=== PATIENT | female | born 1935 | race Caucasian/White ===

== ENCOUNTER 2022-02-25 07:11 | Inpatient (IN) ==
--- NOTE | 2022-02-25 07:23 | Emergency Department Note ---
History of Present Illness General Chief complaint: Lethargic Stated complaint: LETHARGIC Time Seen by Provider: 02/25/22 07:16 History of Present Illness This is an 86-year-old female that presents to the emergency department via ambulance with prehospital complaints of "lethargic". She presents for assessment of altered mental status. Per report the patient around 0250am today had a temp of 99.9 and tachycardia 133bpm. The patient is currently being treated for UTI/yeast infection per accompanying documentation. Indwelling Schwab catheter noted. Around 6:15 AM per documentation [facility] reports lef t-sided facial droop and left sided weakness. EMS note that no weakness has been appreciated on arrival to the facility or en route. Per review of the chart patient is DNR. The patient is notably answering questions at the present time. It appears that she has been admitted for functional decline and went from [facility] to [facility]. Patient arrives to us today from [facility]. He patient on arrival and per EMS did not have any facial droop or extremity weakness. The patient will only follow basic questions such as opening her eyes but will not move any of the extremities. The patient appears to be overall dry and is tachycardic. She does have a borderline elevated temperature orally. Per review of the documentation and admission record from her [facility], the patient is a level 5 DNR. She does not have any documented allergies. The patient appears to have a history of functional decline, gait dysfunction, diabetes type 2, generalized weakness, recurrent UTI, chronic low back pain, chronic left rotator cuff impingement syndrome and failure to thrive. 02/17/2022 urine culture revealed pansensitive E. coli. Heaven albicans also noted. Home Medications Medication Instructions Recorded Confirmed Type acetaminophen 325 mg tablet 325 mg PO QID PRN 02/25/22 02/25/22 History amoxicillin 250 mg capsule 250 mg PO TID 02/25/22 02/25/22 History aspirin 81 mg capsule 81 mg PO QAM 02/25/22 02/25/22 History bisacodyl 10 mg rectal suppository 0 mg ME DAILY PRN 02/25/22 02/25/22 History (Dulcolax (bisacodyl)) diclofenac sodium 1 % topical gel 4 g TOPICAL BID PRN 02/25/22 02/25/22 History docusate sodium 100 mg tablet 100 mg PO BID PRN 02/25/22 02/25/22 History duloxetine 60 mg capsule,delayed 60 mg PO QAM 02/25/22 02/25/22 History release empagliflozin 25 mg tablet 50 mg PO DAILY 02/25/22 02/25/22 History (Jardiance) ferrous gluconate 325 mg (37 mg 324 mg PO DAILY 02/25/22 02/25/22 History iron) tablet fluconazole 100 mg tablet 100 mg PO QAM 02/25/22 02/25/22 History glipizide 5 mg tablet 5 mg PO BID 02/25/22 02/25/22 History insulin aspart U-100 100 unit/mL 0 sliding scale dose SUBCUT QID 02/25/22 02/25/22 History subcutaneous solution (Novolog U-100 Insulin aspart) lactulose 10 gram/15 mL oral 30 g PO DAILY PRN 02/25/22 02/25/22 History solution (Enulose) lanolin alcohols-mineral 1 applic TOPICAL BID 02/25/22 02/25/22 History oil-w.petrolatum-ceresin topical cream (Eucerin) levothyroxine 50 mcg tablet 50 mcg PO DAILY 02/25/22 02/25/22 History magnesium hydroxide 400 mg/5 mL 30 ml PO DAILY PRN 02/25/22 02/25/22 History oral suspension (Milk of Magnesia) menthol 0.44 %-zinc oxide 20.6 % 1 applic TOPICAL QID 02/25/22 02/25/22 History topical ointment metformin 1,000 mg tablet 1,000 mg PO BID 02/25/22 02/25/22 History mirabegron 25 mg tablet,extended 25 mg PO DAILY 02/25/22 02/25/22 History release 24 hr (Myrbetriq) multivitamin 1 tab PO QAM 02/25/22 02/25/22 History naproxen 500 mg tablet 500 mg PO Q12 PRN 02/25/22 02/25/22 History nystatin 100,000 unit/gram topical 1 applic TOPICAL TID 02/25/22 02/25/22 History powder (Nyamyc) nystatin-triamcinolone 100,000 1 applic TOPICAL TID 02/25/22 02/25/22 History unit/g-0.1 % topical cream oxybutynin chloride 10 mg 10 mg PO DAILY 02/25/22 02/25/22 History tablet,extended release 24 hr pantoprazole 40 mg tablet,delayed 40 mg PO DAILY 02/25/22 02/25/22 History release sodium phosphates 19 gram-7 0 ml ME DAILY PRN 02/25/22 02/25/22 History gram/118 mL enema (Fleet Enema) Allergies Allergy/AdvReac Type Severity Reaction Status Date / Time No Known Allergies Allergy Unverified 02/25/22 10:58 Past Med/Surg History Medical History DM2 (diabetes mellitus, type 2) GERD (gastroesophageal reflux disease) Hypothyroid Overactive bladder Social History Smoking Status: Never smoker Hx Alcohol Use: No Hx Substance Use: No Feels Safe at Home: Yes Review of Systems Unobtainable secondary to altered mental status. Physical Exam Vital Signs Vital Signs - 24 hr 02/25/22 07:16 02/25/22 07:30 02/25/22 07:45 Temperature 37.6 C H Temperature Source Oral Pulse Rate 120 H 123 H 127 H Pulse Rate from SpO2 Sensor 124 H Respiratory Rate 24 26 H 20 Blood Pressure 181/102 H 178/98 H 159/129 H Blood Pressure Mean 128 124 139 Blood Pressure Position Lying Pulse Oximetry 95 97 95 Oxygen Delivery Method Room Air Room Air Room Air Sepsis Recent Fever Within 48 Hours No Sepsis New/Unexplained Change in Mental Status N/A Sepsis Action Taken by Nursing No Action Required 02/25/22 08:00 02/25/22 08:15 02/25/22 08:38 Temperature Temperature Source Pulse Rate 122 H 120 H 117 H Pulse Rate from SpO2 Sensor 117 H Respiratory Rate 25 H 24 23 Blood Pressure 167/100 H 166/89 H 148/88 H Blood Pressure Mean 122 114 108 Blood Pressure Position Pulse Oximetry 96 Oxygen Delivery Method Room Air Sepsis Recent Fever Within 48 Hours Sepsis New/Unexplained Change in Mental Status Sepsis Action Taken by Nursing 02/25/22 08:45 02/25/22 09:00 02/25/22 09:15 Temperature Temperature Source Pulse Rate 115 H 115 H 113 H Pulse Rate from SpO2 Sensor 115 H 114 H 113 H Respiratory Rate 20 22 24 Blood Pressure 136/68 131/71 123/71 Blood Pressure Mean 90 91 88 Blood Pressure Position Pulse Oximetry 96 96 96 Oxygen Delivery Method Room Air Room Air Room Air Sepsis Recent Fever Within 48 Hours Sepsis New/Unexplained Change in Mental Status Sepsis Action Taken by Nursing 02/25/22 09:30 02/25/22 09:45 02/25/22 10:00 Temperature Temperature Source Pulse Rate 112 H 110 H 112 H Pulse Rate from SpO2 Sensor 112 H 111 H 112 H Respiratory Rate 20 22 28 H Blood Pressure 137/84 111/76 111/81 Blood Pressure Mean 101 87 91 Blood Pressure Position Pulse Oximetry 97 96 95 Oxygen Delivery Method Room Air Room Air Room Air Sepsis Recent Fever Within 48 Hours Sepsis New/Unexplained Change in Mental Status Sepsis Action Taken by Nursing VITAL SIGNS - Vital signs and nursing notes were reviewed. Mildly tachycardic, borderline febrile. Hypertensive. GENERAL -86-year-old female appearing her stated age who laying on the examination bed with her eyes closed. Patient does not communicate. She will open her eyes when asked. SKIN - Without rashes. No meningeal or petechial rash. HEAD - NC/AT. EYES - PERRL with EOMI bilaterally. Sclera anicteric. Palpebral conjunctiva pink and moist with no injection noted. EARS - No deformities of external structures noted on gross examination bi laterally. No pain elicited with palpation of the tragus bilaterally. External auditory canals without discharge or otorrhea. Tympanic membranes pearly mistry without retraction or bulging. No fluid or purulent material visualized behind the TM. Handle of malleus, umbo, cone of light, pars tensa/flaccid all easily visualized. NOSE - Midline and without cyanosis. No epistaxis or purulent drainage noted. Septum midline without deviation or septal hematoma noted. MOUTH/OROPHARYNX - Without perioral cyanosis. Buccal mucosa pink and moist and without leukoplakia. Tongue midline with equal elevation of palate bilaterally. No tonsillar hypertrophy, erythema, or exudates noted. NECK - No nuchal rigidity. LUNGS - Chest wall symmetric without accessory muscle use, intercostals retractions, or central cyanosis. Normal vesicular breath sounds CTA B/L. No wheezes, rales, or rhonchi appreciated. CARDIAC -tachycardic at a regular rhythm. ABDOMEN - Abdominal contour normal without pulsations or visible masses. No appreciable tenderness to palpation. EXTREMITIES - No clubbing or peripheral cyanosis. Patient will not move the extremities purposefully when asked. No appreciable contractures or deficits when examining the extremities. PSYCH -patient is not answering any questions. She will only open her eyes when directed. No other purposeful movements or words. Course Administered Medications Aspirin (Aspirin 81 Mg Ectab) 81 mg PO QAM [facility] Stop: 03/28/22 08:59 Last Admin: 02/26/22 10:52 Dose: Not Given Documented by: [id number] Duloxetine HCl (Duloxetine Hcl 60 Mg Cap) 60 mg PO QAM LATA Stop: 03/28/22 08:59 Last Admin: 02/26/22 10:52 Dose: Not Given Documented by: [id number] Enoxaparin Sodium (Enoxaparin Inj 60 Mg/0.6 Ml Syr) 60 mg SQ Q12H LATA Stop: 03/27/22 18:59 Last Admin: 02/26/22 08:41 Dose: 60 mg Documented by: [id number] Admin: 02/25/22 21:13 Dose: 60 mg Documented by: [id number] Ferrous Gluconate (Ferrous Gluconate 324 Mg Tab) 324 mg PO DAILY LATA Stop: 03/28/22 08:59 Last Admin: 02/26/22 10:53 Dose: Not Given Documented by: [id number] Fluconazole (Diflucan) 100 mg in 50 mls @ 100 mls/hr IV Q24H LATA; Protocol Stop: 03/07/22 19:59 Last Infusion: 02/25/22 21:52 Dose: 0 mls/hr Documented by: [id number] Admin: 02/25/22 21:14 Dose: 100 mls/hr Documented by: [id number] Cefepime HCl 2,000 mg/ Syringe 20 mls @ 5 mls/min IV DAILY LATA; Protocol Stop: 03/07/22 08:59 Last Admin: 02/26/22 08:40 Dose: 5 mls/min Documented by: [id number] Lactated Ringer's (Lr) 1,000 mls @ 125 mls/hr IV .Q8H LATA Stop: 03/27/22 16:53 Last Admin: 02/26/22 14:20 Dose: 125 mls/hr Documented by: [id number] Infusion: 02/26/22 14:16 Dose: 0 mls/hr Documented by: [id number] Admin: 02/26/22 06:16 Dose: 125 mls/hr Documented by: [id number] Infusion: 02/26/22 01:46 Dose: 125 mls/hr Documented by: [id number] Admin: 02/25/22 17:46 Dose: 125 mls/hr Documented by: [id number] Insulin Aspart (Insulin Aspart Per Unit) 0 units SC ACHS LATA Stop: 03/27/22 11:29 Last Admin: 02/26/22 17:03 Dose: Not Given Documented by: [id number] Admin: 02/26/22 12:29 Dose: Not Given Documented by: [id number] Admin: 02/26/22 08:48 Dose: 2 units Documented by: [id number] Cosigned by: [id number] Admin: 02/25/22 21:21 Dose: 2 units Documented by: [id number] Cosigned by: [id number] Admin: 02/25/22 17:47 Dose: 4 units Documented by: [id number] Cosigned by: [id number] Admin: 02/25/22 14:48 Dose: Not Given Documented by: [id number] Cosigned by: [id number] Insulin Glargine (Insulin Glargine Solostar 100 Units/Ml 3 Ml Pen) 10 units SC BID [facility] Stop: 03/27/22 20:59 Last Admin: 02/26/22 08:43 Dose: 10 units Documented by: [id number] Cosigned by: [id number] Admin: 02/25/22 21:16 Dose: 10 units Documented by: [id number] Cosigned by: [id number] Levothyroxine Sodium (Levothyroxine Sodium 50 Mcg Tablet) 50 mcg PO DAILYBB [facility] Stop: 03/28/22 06:29 Last Admin: 02/26/22 06:17 Dose: Not Given Documented by: [id number] Mirabegron (Mirabegron Er 25 Mg Tab) 25 mg PO DAILY LATA Stop: 03/28/22 08:59 Last Admin: 02/26/22 10:53 Dose: Not Given Documented by: [id number] Nystatin (Nystatin Powder 15gm Btl) 1 appln EXT TID LATA Stop: 03/27/22 13:59 Last Admin: 02/26/22 15:13 Dose: 1 appln Documented by: [id number] Admin: 02/26/22 08:43 Dose: 1 appln Documented by: [id number] Admin: 02/25/22 22:08 Dose: 1 appln Documented by: [id number] Admin: 02/25/22 17:08 Dose: Not Given Documented by: [id number] Oxybutynin Chloride (Oxybutynin Chloride Xl 5 Mg Tabcr) 10 mg PO DAILY LATA Stop: 03/28/22 08:59 Last Admin: 02/26/22 10:53 Dose: Not Given Documented by: [id number] Pantoprazole Sodium (Pantoprazole 40 Mg Tab) 40 mg PO DAILY LATA Stop: 03/28/22 08:59 Last Admin: 02/26/22 10:53 Dose: Not Given Documented by: [id number] Discontinued Medications Acetaminophen (Ofirmev) 1,000 mg in 100 mls @ 400 mls/hr IV NOW STA Stop: 02/25/22 07:45 Last Infusion: 02/25/22 08:30 Dose: 0 mls/hr Documented by: [id number] Admin: 02/25/22 08:15 Dose: 400 mls/hr Documented by: [id number] Sodium Chloride (Nss 1000ml) 500 mls @ 500 mls/hr IV .Q1H ONE Stop: 02/25/22 08:30 Last Infusion: 02/25/22 09:20 Dose: 0 mls/hr Documented by: [id number] Admin: 02/25/22 08:15 Dose: 500 mls/hr Documented by: [id number] Cefepime HCl (Maxipime) 2,000 mg in 20 mls @ 5 mls/min IV NOW STA; Protocol Stop: 02/25/22 07:34 Last Admin: 02/25/22 08:12 Dose: 5 mls/min Documented by: [id number] Vancomycin HCl 2,000 mg/ (Sodium Chloride) 540 mls @ 200 mls/hr IV NOW ONE Stop: 02/25/22 10:12 Last Infusion: 02/25/22 11:37 Dose: 0 mls/hr Documented by: [id number] Admin: 02/25/22 08:19 Dose: 200 mls/hr Documented by: [id number] Sodium Chloride (Nss 1000ml) 500 mls @ 999 mls/hr IV .Q31M ONE Stop: 02/25/22 10:58 Last Infusion: 02/25/22 12:09 Dose: 0 mls/hr Documented by: [id number] Admin: 02/25/22 11:33 Dose: 999 mls/hr Documented by: [id number] Magnesium Sulfate/Dextrose (Magnesium Sulfate / D5w) 1 gm in 100 mls @ 50 mls/hr IV Q2H LATA Stop: 02/25/22 16:37 Last Infusion: 02/25/22 17:11 Dose: 0 mls/hr Documented by: [id number] Admin: 02/25/22 15:10 Dose: 50 mls/hr Documented by: [id number] Infusion: 02/25/22 15:10 Dose: 50 mls/hr Documented by: [id number] Admin: 02/25/22 14:02 Dose: 50 mls/hr Documented by: [id number] Infusion: 02/25/22 13:33 Dose: 50 mls/hr Documented by: [id number] Admin: 02/25/22 11:33 Dose: 50 mls/hr Documented by: [id number] Vancomycin HCl 1,250 mg/ (Sodium Chloride) 275 mls @ 200 mls/hr IV Q24H LATA Stop: 03/08/22 01:59 Last Infusion: 02/26/22 04:07 Dose: 0 mls/hr Documented by: [id number] Admin: 02/26/22 02:15 Dose: 200 mls/hr Documented by: [id number] Medical Decision Making Laboratory Data Result diagrams: 02/26/22 05:24 02/26/22 05:24 Lab Results 02/25/22 02/25/22 02/25/22 Range/Units 07:51 07:56 08:13 WBC RBC Hgb Hct MCV MCH MCHC RDW Std Deviation RDW Coeff of Susanna Plt Count MPV Immature Gran % (Auto) Neut % (Auto) Lymph % (Auto) Maries % (Auto) Eos % (Auto) Baso % (Auto) Neut # (Auto) Lymph # (Auto) Maries # (Auto) Eos # (Auto) Baso # (Auto) Immature Gran # (Auto) Absolute Nucleated RBC Nucleated RBC % (auto) Neutrophils % (Manual) Band Neutrophils % Lymphocytes % (Manual) Prolymphocyte % Reactive Lymphs % (Man) Monocytes % (Manual) Eosinophils % (Manual) Basophils % (Manual) Metamyelocytes % (Man) Myelocytes % (Man) Promyelocytes % (Man) Blast Cells % (Manual) Plasma Cell % (Manual) Other Cells % Nucleated RBC % Neutrophils # (Manual) Band Neutrophils # Total Absolute Neuts Lymphocytes # (Manual) Prolymphocyte # Reactive Lymphs # Total Abs Lymphocytes Monocytes # (Manual) Eosinophils # (Manual) Basophils # (Manual) Metamyelocytes # (Man) Myelocytes # (Manual) Promyelocytes # (Man) Blast Cells # (Man) Plasma Cell # (Manual) Other Cells # Nucleated RBCs # (Man) Hypersegmented Neuts Hyposegmented Neuts Hypogranular Neuts Large Granular Lymphs # Lrg Granular Lymphs Hairy Cells Smudge Cells Toxic Granulation Toxic Vacuolation Dohle Bodies Tova Rods Platelet Estimate Hypogranular Platelets Clumped Platelets Giant Platelets Platelet Satelliting RBC Morphology Polychromasia Hypochromasia Poikilocytosis Basophilic Stippling Anisocytosis Microcytosis Macrocytosis Spherocytes Pappenheimer Bodies Sickle Cells Target Cells Tear Drop Cells Ovalocytes Stomatocytes Warren-Standish Bodies Echinocytes Acanthocytes (Spur) Rouleaux RBC Agglutinates Schistocytes RBC Morph Comment Sezary Cell PT (9.0-12.0) Seconds INR (0.9-1.1) APTT (21.0-31.0) Seconds PTT Ratio VBG pH (7.36-7.41) VBG pCO2 (38-50) mmHg VBG pO2 mmHg VBG HCO3 mmol/L VBG O2 Saturation % VBG Base Excess mEq/L Barometric Pressure mm/Hg Sodium Cancelled Potassium Cancelled Chloride Cancelled Carbon Dioxide Cancelled Anion Gap Cancelled BUN Cancelled Creatinine Cancelled Est Cr Clr Drug Dosing Cancelled Est GFR ( Amer) Cancelled Est GFR (Non-Af Amer) Cancelled BUN/Creatinine Ratio Cancelled Glucose Cancelled Lactate Calcium Cancelled Magnesium Cancelled Total Bilirubin Cancelled AST Cancelled ALT Cancelled Alkaline Phosphatase Cancelled Troponin I High Sens Cancelled Total Protein Cancelled Albumin Cancelled Globulin Cancelled Albumin/Globulin Ratio Cancelled Procalcitonin (0-0.5) ng/ml TSH Free T4 (0.61-1.60) ng/dl Urine Color [place] Urine Appearance Turbid A (Clear) Urine pH 5.0 (4.5-7.5) Ur Specific Murchison 1.033 H (1.000-1.030) Urine Protein 2+ H (Negative) Urine Glucose (UA) 3+ H (Negative) Urine Ketones 4+ H (Negative) Urine Blood 3+ H (Negative) Urine Nitrite Negative (Negative) Urine Bilirubin Negative (Negative) Urine Urobilinogen Negative (Negative) Ur Leukocyte Esterase 2+ H (Negative) Urine WBC (Auto) >30 H (0-5) /hpf Urine RBC (Auto) 10-30 H (0-4) /hpf U Hyaline Cast (Auto) 1-5 (0-5) /lpf U Epithel Cells (Auto) >30 H (0-5) /lpf Urine Bacteria (Auto) 1+ H (Negative) Urine Yeast Not Reportable Adenovirus (PCR) Not Detected (NotDetected) B. pertussis DNA (PCR) Not Detected (NotDetected) B.parapertussis DNA PCR Not Detected (NotDetected) C. pneumoniae DNA (PCR) Not Detected (NotDetected) Coronavirus OC43 (PCR) Not Detected (NotDetected) Coronavirus HKU1 (PCR) Not Detected (NotDetected) Coronavirus 229E (PCR) Not Detected (NotDetected) SARS-CoV-2 (PCR) Not Detected (NotDetected) Coronavirus NL63 (PCR) Not Detected (NotDetected) Human Metapneumovir PCR Not Detected (NotDetected) Influenza Type A (PCR) Not Detected (NotDetected) Influenza Type B (PCR) Not Detected (NotDetected) M. pneumoniae (PCR) Not Detected (NotDetected) Parainfluenza 1 (PCR) Not Detected (NotDetected) Parainfluenza 2 (PCR) Not Detected (NotDetected) Parainfluenza 3 (PCR) Not Detected (NotDetected) Parainfluenza 4 (PCR) Not Detected (NotDetected) RSV (PCR) Not Detected (NotDetected) Entero/Rhino (PCR) Not Detected (NotDetected) 02/25/22 02/25/22 02/25/22 Range/Units 08:13 08:13 08:13 WBC Cancelled RBC Cancelled Hgb Cancelled Hct Cancelled MCV Cancelled MCH Cancelled MCHC Cancelled RDW Std Deviation Cancelled RDW Coeff of Susanna Cancelled Plt Count Cancelled MPV Cancelled Immature Gran % (Auto) Cancelled Neut % (Auto) Cancelled Lymph % (Auto) Cancelled Maries % (Auto) Cancelled Eos % (Auto) Cancelled Baso % (Auto) Cancelled Neut # (Auto) Cancelled Lymph # (Auto) Cancelled Maries # (Auto) Cancelled Eos # (Auto) Cancelled Baso # (Auto) Cancelled Immature Gran # (Auto) Cancelled Absolute Nucleated RBC Cancelled Nucleated RBC % (auto) Cancelled Neutrophils % (Manual) Cancelled Band Neutrophils % Cancelled Lymphocytes % (Manual) Cancelled Prolymphocyte % Cancelled Reactive Lymphs % (Man) Cancelled Monocytes % (Manual) Cancelled Eosinophils % (Manual) Cancelled Basophils % (Manual) Cancelled Metamyelocytes % (Man) Cancelled Myelocytes % (Man) Cancelled Promyelocytes % (Man) Cancelled Blast Cells % (Manual) Cancelled Plasma Cell % (Manual) Cancelled Other Cells % Cancelled Nucleated RBC % Cancelled Neutrophils # (Manual) Cancelled Band Neutrophils # Cancelled Total Absolute Neuts Cancelled Lymphocytes # (Manual) Cancelled Prolymphocyte # Cancelled Reactive Lymphs # Cancelled Total Abs Lymphocytes Cancelled Monocytes # (Manual) Cancelled Eosinophils # (Manual) Cancelled Basophils # (Manual) Cancelled Metamyelocytes # (Man) Cancelled Myelocytes # (Manual) Cancelled Promyelocytes # (Man) Cancelled Blast Cells # (Man) Cancelled Plasma Cell # (Manual) Cancelled Other Cells # Cancelled Nucleated RBCs # (Man) Cancelled Hypersegmented Neuts Cancelled Hyposegmented Neuts Cancelled Hypogranular Neuts Cancelled Large Granular Lymphs Cancelled # Lrg Granular Lymphs Cancelled Hairy Cells Cancelled Smudge Cells Cancelled Toxic Granulation Cancelled Toxic Vacuolation Cancelled Dohle Bodies Cancelled Tova Rods Cancelled Platelet Estimate Cancelled Hypogranular Platelets Cancelled Clumped Platelets Cancelled Giant Platelets Cancelled Platelet Satelliting Cancelled RBC Morphology Cancelled Polychromasia Cancelled Hypochromasia Cancelled Poikilocytosis Cancelled Basophilic Stippling Cancelled Anisocytosis Cancelled Microcytosis Cancelled Macrocytosis Cancelled Spherocytes Cancelled Pappenheimer Bodies Cancelled Sickle Cells Cancelled Target Cells Cancelled Tear Drop Cells Cancelled Ovalocytes Cancelled Stomatocytes Cancelled Warren-Standish Bodies Cancelled Echinocytes Cancelled Acanthocytes (Spur) Cancelled Rouleaux Cancelled RBC Agglutinates Cancelled Schistocytes Cancelled RBC Morph Comment Cancelled Sezary Cell Cancelled PT 14.1 H (9.0-12.0) Seconds INR 1.3 H (0.9-1.1) APTT 20.3 L (21.0-31.0) Seconds PTT Ratio 0.7 VBG pH (7.36-7.41) VBG pCO2 (38-50) mmHg VBG pO2 mmHg VBG HCO3 mmol/L VBG O2 Saturation % VBG Base Excess mEq/L Barometric Pressure mm/Hg Sodium Potassium Chloride Carbon Dioxide Anion Gap BUN Creatinine Est Cr Clr Drug Dosing Est GFR ( Amer) Est GFR (Non-Af Amer) BUN/Creatinine Ratio Glucose Lactate Calcium Magnesium Total Bilirubin AST ALT Alkaline Phosphatase Troponin I High Sens Total Protein Albumin Globulin Albumin/Globulin Ratio Procalcitonin < 0.05 (0-0.5) ng/ml TSH Free T4 (0.61-1.60) ng/dl Urine Color Urine Appearance (Clear) Urine pH (4.5-7.5) Ur Specific Murchison (1.000-1.030) Urine Protein (Negative) Urine Glucose (UA) (Negative) Urine Ketones (Negative) Urine Blood (Negative) Urine Nitrite (Negative) Urine Bilirubin (Negative) Urine Urobilinogen (Negative) Ur Leukocyte Esterase (Negative) Urine WBC (Auto) (0-5) /hpf Urine RBC (Auto) (0-4) /hpf U Hyaline Cast (Auto) (0-5) /lpf U Epithel Cells (Auto) (0-5) /lpf Urine Bacteria (Auto) (Negative) Urine Yeast Adenovirus (PCR) (NotDetected) B. pertussis DNA (PCR) (NotDetected) B.parapertussis DNA PCR (NotDetected) C. pneumoniae DNA (PCR) (NotDetected) Coronavirus OC43 (PCR) (NotDetected) Coronavirus HKU1 (PCR) (NotDetected) Coronavirus 229E (PCR) (NotDetected) SARS-CoV-2 (PCR) (NotDetected) Coronavirus NL63 (PCR) (NotDetected) Human Metapneumovir PCR (NotDetected) Influenza Type A (PCR) (NotDetected) Influenza Type B (PCR) (NotDetected) M. pneumoniae (PCR) (NotDetected) Parainfluenza 1 (PCR) (NotDetected) Parainfluenza 2 (PCR) (NotDetected) Parainfluenza 3 (PCR) (NotDetected) Parainfluenza 4 (PCR) (NotDetected) RSV (PCR) (NotDetected) Entero/Rhino (PCR) (NotDetected) 02/25/22 02/25/22 02/25/22 Range/Units 08:13 08:16 08:16 WBC RBC Hgb Hct MCV MCH MCHC RDW Std Deviation RDW Coeff of Susanna Plt Count MPV Immature Gran % (Auto) Neut % (Auto) Lymph % (Auto) Maries % (Auto) Eos % (Auto) Baso % (Auto) Neut # (Auto) Lymph # (Auto) Maries # (Auto) Eos # (Auto) Baso # (Auto) Immature Gran # (Auto) Absolute Nucleated RBC Nucleated RBC % (auto) Neutrophils % (Manual) Band Neutrophils % Lymphocytes % (Manual) Prolymphocyte % Reactive Lymphs % (Man) Monocytes % (Manual) Eosinophils % (Manual) Basophils % (Manual) Metamyelocytes % (Man) Myelocytes % (Man) Promyelocytes % (Man) Blast Cells % (Manual) Plasma Cell % (Manual) Other Cells % Nucleated RBC % Neutrophils # (Manual) Band Neutrophils # Total Absolute Neuts Lymphocytes # (Manual) Prolymphocyte # Reactive Lymphs # Total Abs Lymphocytes Monocytes # (Manual) Eosinophils # (Manual) Basophils # (Manual) Metamyelocytes # (Man) Myelocytes # (Manual) Promyelocytes # (Man) Blast Cells # (Man) Plasma Cell # (Manual) Other Cells # Nucleated RBCs # (Man) Hypersegmented Neuts Hyposegmented Neuts Hypogranular Neuts Large Granular Lymphs # Lrg Granular Lymphs Hairy Cells Smudge Cells Toxic Granulation Toxic Vacuolation Dohle Bodies [place] Rods Platelet Estimate Hypogranular Platelets Clumped Platelets Giant Platelets Platelet Satelliting RBC Morphology Polychromasia Hypochromasia Poikilocytosis Basophilic Stippling Anisocytosis Microcytosis Macrocytosis Spherocytes Pappenheimer Bodies Sickle Cells Target Cells Tear Drop Cells Ovalocytes Stomatocytes Warren-Standish Bodies Echinocytes Acanthocytes (Spur) Rouleaux RBC Agglutinates Schistocytes RBC Morph Comment Sezary Cell PT (9.0-12.0) Seconds INR (0.9-1.1) APTT (21.0-31.0) Seconds PTT Ratio VBG pH 7.36 (7.36-7.41) VBG pCO2 21 L (38-50) mmHg VBG pO2 89 mmHg VBG HCO3 12 mmol/L VBG O2 Saturation 97.1 % VBG Base Excess -11.4 mEq/L Barometric Pressure 733.6 mm/Hg Sodium Potassium Chloride Carbon Dioxide Anion Gap BUN Creatinine Est Cr Clr Drug Dosing Est GFR ( Amer) Est GFR (Non-Af Amer) BUN/Creatinine Ratio Glucose Lactate Cancelled Calcium Magnesium Total Bilirubin AST ALT Alkaline Phosphatase Troponin I High Sens Total Protein Albumin Globulin Albumin/Globulin Ratio Procalcitonin (0-0.5) ng/ml TSH Cancelled Free T4 (0.61-1.60) ng/dl Urine Color Urine Appearance (Clear) Urine pH (4.5-7.5) Ur Specific Murchison (1.000-1.030) Urine Protein (Negative) Urine Glucose (UA) (Negative) Urine Ketones (Negative) Urine Blood (Negative) Urine Nitrite (Negative) Urine Bilirubin (Negative) Urine Urobilinogen (Negative) Ur Leukocyte Esterase (Negative) Urine WBC (Auto) (0-5) /hpf Urine RBC (Auto) (0-4) /hpf U Hyaline Cast (Auto) (0-5) /lpf U Epithel Cells (Auto) (0-5) /lpf Urine Bacteria (Auto) (Negative) Urine Yeast Adenovirus (PCR) (NotDetected) B. pertussis DNA (PCR) (NotDetected) B.parapertussis DNA PCR (NotDetected) C. pneumoniae DNA (PCR) (NotDetected) Coronavirus OC43 (PCR) (NotDetected) Coronavirus HKU1 (PCR) (NotDetected) Coronavirus 229E (PCR) (NotDetected) SARS-CoV-2 (PCR) (NotDetected) Coronavirus NL63 (PCR) (NotDetected) Human Metapneumovir PCR (NotDetected) Influenza Type A (PCR) (NotDetected) Influenza Type B (PCR) (NotDetected) M. pneumoniae (PCR) (NotDetected) Parainfluenza 1 (PCR) (NotDetected) Parainfluenza 2 (PCR) (NotDetected) Parainfluenza 3 (PCR) (NotDetected) Parainfluenza 4 (PCR) (NotDetected) RSV (PCR) (NotDetected) Entero/Rhino (PCR) (NotDetected) 02/25/22 02/25/22 02/25/22 Range/Units 09:20 09:20 09:20 WBC 13.61 H RBC 4.94 Hgb 13.4 Hct 40.4 MCV 81.8 MCH 27.1 MCHC 33.2 RDW Std Deviation 48.8 H RDW Coeff of Susanna 16.4 H Plt Count 456 H MPV 8.6 Immature Gran % (Auto) 1.0 Neut % (Auto) 76.1 Lymph % (Auto) 17.1 Maries % (Auto) 5.7 Eos % (Auto) 0.0 Baso % (Auto) 0.1 Neut # (Auto) 10.36 H Lymph # (Auto) 2.33 Maries # (Auto) 0.77 H Eos # (Auto) 0.00 Baso # (Auto) 0.02 Immature Gran # (Auto) 0.13 H Absolute Nucleated RBC Nucleated RBC % (auto) Neutrophils % (Manual) Band Neutrophils % Lymphocytes % (Manual) Prolymphocyte % Reactive Lymphs % (Man) Monocytes % (Manual) Eosinophils % (Manual) Basophils % (Manual) Metamyelocytes % (Man) Myelocytes % (Man) Promyelocytes % (Man) Blast Cells % (Manual) Plasma Cell % (Manual) Other Cells % Nucleated RBC % Neutrophils # (Manual) Band Neutrophils # Total Absolute Neuts Lymphocytes # (Manual) Prolymphocyte # Reactive Lymphs # Total Abs Lymphocytes Monocytes # (Manual) Eosinophils # (Manual) Basophils # (Manual) Metamyelocytes # (Man) Myelocytes # (Manual) Promyelocytes # (Man) Blast Cells # (Man) Plasma Cell # (Manual) Other Cells # Nucleated RBCs # (Man) Hypersegmented Neuts Hyposegmented Neuts Hypogranular Neuts Large Granular Lymphs # Lrg Granular Lymphs Hairy Cells Smudge Cells Toxic Granulation Toxic Vacuolation Dohle Bodies Tova Rods Platelet Estimate Hypogranular Platelets Clumped Platelets Giant Platelets Platelet Satelliting RBC Morphology Polychromasia Hypochromasia Poikilocytosis Basophilic Stippling Anisocytosis Microcytosis Macrocytosis Spherocytes Pappenheimer Bodies Sickle Cells Target Cells Tear Drop Cells Ovalocytes Stomatocytes Warren-Standish Bodies Echinocytes Acanthocytes (Spur) Rouleaux RBC Agglutinates Schistocytes RBC Morph Comment Sezary Cell PT (9.0-12.0) Seconds INR (0.9-1.1) APTT (21.0-31.0) Seconds PTT Ratio VBG pH (7.36-7.41) VBG pCO2 (38-50) mmHg VBG pO2 mmHg VBG HCO3 mmol/L VBG O2 Saturation % VBG Base Excess mEq/L Barometric Pressure mm/Hg Sodium 140 Potassium 4.2 Chloride 108 H Carbon Dioxide 10 L Anion Gap 22 H BUN 36 H Creatinine 1.13 Est Cr Clr Drug Dosing 47.6 Est GFR ( Amer) 51.3 Est GFR (Non-Af Amer) 44.3 BUN/Creatinine Ratio 31.9 H Glucose 245 H Lactate Calcium 10.2 H Magnesium 1.5 L Total Bilirubin 0.5 AST 12 L ALT 8 Alkaline Phosphatase 57 Troponin I High Sens 24.4 H Total Protein 6.7 Albumin 3.5 Globulin 3.2 Albumin/Globulin Ratio 1.1 Procalcitonin (0-0.5) ng/ml TSH 0.109 L Free T4 0.92 (0.61-1.60) ng/dl Urine Color Urine Appearance (Clear) Urine pH (4.5-7.5) Ur Specific Murchison (1.000-1.030) Urine Protein (Negative) Urine Glucose (UA) (Negative) Urine Ketones (Negative) Urine Blood (Negative) Urine Nitrite (Negative) Urine Bilirubin (Negative) Urine Urobilinogen (Negative) Ur Leukocyte Esterase (Negative) Urine WBC (Auto) (0-5) /hpf Urine RBC (Auto) (0-4) /hpf U Hyaline Cast (Auto) (0-5) /lpf U Epithel Cells (Auto) (0-5) /lpf Urine Bacteria (Auto) (Negative) Urine Yeast Adenovirus (PCR) (NotDetected) B. pertussis DNA (PCR) (NotDetected) B.parapertussis DNA PCR (NotDetected) C. pneumoniae DNA (PCR) (NotDetected) Coronavirus OC43 (PCR) (NotDetected) Coronavirus HKU1 (PCR) (NotDetected) Coronavirus 229E (PCR) (NotDetected) SARS-CoV-2 (PCR) (NotDetected) Coronavirus NL63 (PCR) (NotDetected) Human Metapneumovir PCR (NotDetected) Influenza Type A (PCR) (NotDetected) Influenza Type B (PCR) (NotDetected) M. pneumoniae (PCR) (NotDetected) Parainfluenza 1 (PCR) (NotDetected) Parainfluenza 2 (PCR) (NotDetected) Parainfluenza 3 (PCR) (NotDetected) Parainfluenza 4 (PCR) (NotDetected) RSV (PCR) (NotDetected) Entero/Rhino (PCR) (NotDetected) 02/25/22 Range/Units 09:27 WBC RBC Hgb Hct MCV MCH MCHC RDW Std Deviation RDW Coeff of Susanna Plt Count MPV Immature Gran % (Auto) Neut % (Auto) Lymph % (Auto) Maries % (Auto) Eos % (Auto) Baso % (Auto) Neut # (Auto) Lymph # (Auto) Maries # (Auto) Eos # (Auto) Baso # (Auto) Immature Gran # (Auto) Absolute Nucleated RBC Nucleated RBC % (auto) Neutrophils % (Manual) Band Neutrophils % Lymphocytes % (Manual) Prolymphocyte % Reactive Lymphs % (Man) Monocytes % (Manual) Eosinophils % (Manual) Basophils % (Manual) Metamyelocytes % (Man) Myelocytes % (Man) Promyelocytes % (Man) Blast Cells % (Manual) Plasma Cell % (Manual) Other Cells % Nucleated RBC % Neutrophils # (Manual) Band Neutrophils # Total Absolute Neuts Lymphocytes # (Manual) Prolymphocyte # Reactive Lymphs # Total Abs Lymphocytes Monocytes # (Manual) Eosinophils # (Manual) Basophils # (Manual) Metamyelocytes # (Man) Myelocytes # (Manual) Promyelocytes # (Man) Blast Cells # (Man) Plasma Cell # (Manual) Other Cells # Nucleated RBCs # (Man) Hypersegmented Neuts Hyposegmented Neuts Hypogranular Neuts Large Granular Lymphs # Lrg Granular Lymphs Hairy Cells Smudge Cells Toxic Granulation Toxic Vacuolation Dohle Bodies Tova Rods Platelet Estimate Hypogranular Platelets Clumped Platelets Giant Platelets Platelet Satelliting RBC Morphology Polychromasia Hypochromasia Poikilocytosis Basophilic Stippling Anisocytosis Microcytosis Macrocytosis Spherocytes Pappenheimer Bodies Sickle Cells Target Cells Tear Drop Cells Ovalocytes Stomatocytes Warren-Standish Bodies Echinocytes Acanthocytes (Spur) Rouleaux RBC Agglutinates Schistocytes RBC Morph Comment Sezary Cell PT (9.0-12.0) Seconds INR (0.9-1.1) APTT (21.0-31.0) Seconds PTT Ratio VBG pH (7.36-7.41) VBG pCO2 (38-50) mmHg VBG pO2 mmHg VBG HCO3 mmol/L VBG O2 Saturation % VBG Base Excess mEq/L Barometric Pressure mm/Hg Sodium Potassium Chloride Carbon Dioxide Anion Gap BUN Creatinine Est Cr Clr Drug Dosing Est GFR ( Amer) Est GFR (Non-Af Amer) BUN/Creatinine Ratio Glucose Lactate 0.7 Calcium Magnesium Total Bilirubin AST ALT Alkaline Phosphatase Troponin I High Sens Total Protein Albumin Globulin Albumin/Globulin Ratio Procalcitonin (0-0.5) ng/ml TSH Free T4 (0.61-1.60) ng/dl Urine Color Urine Appearance (Clear) Urine pH (4.5-7.5) Ur Specific Murchison (1.000-1.030) Urine Protein (Negative) Urine Glucose (UA) (Negative) Urine Ketones (Negative) Urine Blood (Negative) Urine Nitrite (Negative) Urine Bilirubin (Negative) Urine Urobilinogen (Negative) Ur Leukocyte Esterase (Negative) Urine WBC (Auto) (0-5) /hpf Urine RBC (Auto) (0-4) /hpf U Hyaline Cast (Auto) (0-5) /lpf U Epithel Cells (Auto) (0-5) /lpf Urine Bacteria (Auto) (Negative) Urine Yeast Adenovirus (PCR) (NotDetected) B. pertussis DNA (PCR) (NotDetected) B.parapertussis DNA PCR (NotDetected) C. pneumoniae DNA (PCR) (NotDetected) Coronavirus OC43 (PCR) (NotDetected) Coronavirus HKU1 (PCR) (NotDetected) Coronavirus 229E (PCR) (NotDetected) SARS-CoV-2 (PCR) (NotDetected) Coronavirus NL63 (PCR) (NotDetected) Human Metapneumovir PCR (NotDetected) Influenza Type A (PCR) (NotDetected) Influenza Type B (PCR) (NotDetected) M. pneumoniae (PCR) (NotDetected) Parainfluenza 1 (PCR) (NotDetected) Parainfluenza 2 (PCR) (NotDetected) Parainfluenza 3 (PCR) (NotDetected) Parainfluenza 4 (PCR) (NotDetected) RSV (PCR) (NotDetected) Entero/Rhino (PCR) (NotDetected) Imaging Data Radiologist's Impression: Chest X-Ray 02/25/22 07:23 SINGLE VIEW CHEST CLINICAL HISTORY: Sepsis. Lethargy. FINDINGS: An AP, portable, upright chest radiograph is obtained. No prior studies are available for comparison at the time of dictation. The heart is top normal for projection. The pulmonary vasculature is noncongested. There is mild elevation of the right hemidiaphragm and chronic interstitial thickening. No airspace consolidation or large pleural effusion is identified. No pneumothorax is seen. The skeletal structures are osteopenic. Advanced arthritic change is seen in the left shoulder. There is chronic posttraumatic deformity of the left clavicle. Fusion hardware is noted in the lower cervical spine. IMPRESSION: No acute cardiopulmonary abnormality. ACT 112: Negative or not required by law. Electronically signed by: Joel Mckinney M.D. 02/25/2022 8:[address] 02/25/22 07:25 CT SCAN OF THE BRAIN WITHOUT IV CONTRAST CLINICAL HISTORY: Lethargy. Left-sided weakness. COMPARISON STUDY: No priors. TECHNIQUE: Unenhanced axial CT scan of the brain is performed from the vertex to the skull base. A dose lowering technique was utilized adhering to the principles of ALARA. FINDINGS: Brain parenchyma: There are age-related involutional changes noting moderate confluent subcortical and periventricular microangiopathic change. There is no hemorrhage, mass effect, or evidence of acute territorial ischemia by CT criteria. Mistry-white matter differentiation is preserved. No extra-axial fluid collection is seen. Ventricles, sulci, cisterns: Prominent secondary to involutional change. Intracranial vasculature: There is atherosclerotic calcification of the cavernous carotid and vertebral arteries. Calvarium: Unremarkable. Sinuses and mastoids: The visualized paranasal sinuses are clear. The mastoid air cells are well pneumatized. Orbits: The bony orbits are grossly intact. There are bilateral ocular lens implants IMPRESSION: There is no hemorrhage, mass effect, or evidence of acute territorial ischemia by CT criteria. ACT 112: Negative or not required by law. Electronically signed by: Joel Mckinney M.D. 02/25/2022 8:41 AM Abdomen/Pelvis CT 02/25/22 07:50 CT abd pelvis wo con CLINICAL HISTORY: AMS, recent UTI. TECHNIQUE: Helical axial images of the abdomen and pelvis were obtained. Automated dose lowering techniques and/or adjustment according to patient size were utilized for this exam. This exam was performed without intravenous contrast. CT DOSE: 2397.54 mGy.cm COMPARISON: None available at the time of this dictation. FINDINGS: Lower chest: Mitral annular calcification is seen. Incidental note is made of subcentimeter paraesophageal nodes. Liver: Unremarkable. No focal lesions are seen. Gallbladder and biliary tree: There is prominence of the gallbladder. No intra- or extrahepatic biliary ductal dilation. Pancreas: Fatty replacement of the pancreas is seen. Spleen: Unremarkable. Adrenals: Unremarkable. Kidneys and ureters: Unremarkable. Bladder: Schwab catheter is seen. Reproductive organs: Unremarkable. Bowel: A hiatal hernia is seen. Lymph nodes Retroperitoneal: Unremarkable. Mesenteric: Unremarkable. Pelvic: Unremarkable. Peritoneum: Normal. Vessels: Unremarkable. Abdominal wall: Small fat-containing bilateral inguinal hernias are seen. There is a fat-containing right ventral hernia. Bones: Degenerative changes in the visualized spine. Grade 1 anterolisthesis of L4-L5 is seen. IMPRESSION: No evidence of acute abnormality. ACT 112: Negative or not required by law. Electronically signed by: Fly Reina M.D. 02/25/2022 8:51 AM [facility] Narrative Patient was seen and evaluated as above in room A11. Review was performed of nursing notes and vital signs. I did review pertinent previous visits and patient history. After obtaining a thorough history and physical examination the above work up was performed. Patient presents to us today via EMS over concerns of altered mental status. The patient clinically appears to be in no acute distress but will note that she will not answer questions. She will only open her eyes when spoken to. Reports reveal that there was perhaps some left-sided facial droop and left arm weakness appreciated earlier today however prior to this the patient was found to be tachycardic, borderline febrile and will note that she is currently being treated for UTI. EMS on arrival report that they are not able to appreciate any weakness. Patient not able participate in purposeful exam. I did review the patient's accompanying documentation extensively. She is a DNR. I did attempt to discuss options and plan of care with contacts listed within her documentation however there were no answers to the calls I placed. I left a message. IV access was established. Labs were drawn. EKG was obtained on arrival. This reveals sinus tachycardia rate of 120 bpm. There is no [address] elevation. QTc 435. QRS 90. Mild leukocytosis 13.61. No anemia. INR 1.3. VBG reveals PCO2 of 21. Anion gap 22. BUN 36. Glucose 245. Mild hypercalcemia 10.2 with hypomagnesemia 1.5. Troponin was found to be mildly elevated. TSH reveals a slight decrease in value. Procalcitonin negative. Free T4 normal. Urinalysis reveals potential for infection. Respiratory panel negative. Chest x-ray negative. CT scan of the head negative. Abdomen pelvis CT obtained noting that she is currently being treated for UTI presents with signs/symptoms concerning for potential sepsis leading to altered mental status. No obstructive uropathy noted. There was comment of left-sided facial droop and left sided weakness earlier today from the receiving facility per documentation, I will note that prior to this documentation there appeared to be tachycardia and fever. She is currently being treated for UTI. Patient's presentation is more consistent with that of septic/infectious presentation. She was empirically provided antibiotics. This was cefepime and vancomycin. Previous cultures were reviewed. Blood cultures pending. Patient reassessed throughout her stay. The patient unfortunately is unable to participate in a purposeful examination to further assess strength in the extremities. She will only open her eyes. Thus far I am not able to reach any of her contacts listed in her chart. Patient is not able to answer any questions. I do not believe that stroke alert at this time is needed. Again, it is felt that her presentation is altered mental status likely secondary to infectious etiology. Do not suspect meningitis or encephalitis. Case discussed with the hospitalist. It is felt that further evaluation and management in the inpatient setting is warranted. Please refer to further documentation regarding her stay. Case was discussed with the attending physician. An order was placed for continuous cardiac monitoring. This revealed a sinus rhythm at a rate of 104 bpm. GCS: 15 In the evaluation and treatment of this patient the following differential diagnoses were entertained: Acute intracranial abnormality, CVA, TIA, meningitis, encephalitis, sepsis, septic shock, DC, PE, pericarditis, UTI, pyelonephritis, among others. 0737am on 02/25/2022: I attempted to call both contact numbers listed for primary contact listed in her accompanying documentation. This was [phone] as well as [phone]. The initial number that I would call went straight to [employer] of which I was able leave a message at the first number but not the second number. No other contact numbers are listed with the patient's accompanying documentation. Per report prehospital facility also attempted to reach out to the contact listed for the patient without success. Impression & Plan Altered mental status, UTI (urinary tract infection), Sepsis Discharge Plan Visit Data Chief Complaint: Lethargic Stated Complaint: LETHARGIC ED Provider: [facility] Midlevel Provider: Joesph Mccormick Discharge Problem: Altered mental status, UTI (urinary tract infection), Sepsis Patient Disposition: Admitted As Inpatient Condition: Fair Discharge Instructions Interventions: ED Discharge Assessment Last Done: 02/25/22 16:33
[2022-02-25] MEDS ORDERED: ACETAMINOPHEN 1,000 MG/100 ML VIAL IV STA (07:31)
[2022-02-25] MEDS ORDERED: CEFEPIME 2,000 MG/20 ML VIAL IV STA (07:31)
[2022-02-25] MEDS ORDERED: VANCOMYCIN CONSULT ACTIVE PRN ×2 (07:31→11:41)
[2022-02-25] MEDS ORDERED: VANCOMYCIN HCL 2,000 MG in SODIUM CHLORIDE 0.9% 500 ML IV ONE (07:31)
[2022-02-25] MEDS ORDERED: SODIUM CHLORIDE 0.9% 1000ML 500 ML IV ONE ×2 (07:31→10:28)
--- NOTE | 2022-02-25 07:49 | Emergency Department Note ---
ED Visit Note I was consulted by the Advanced Practice Provider. I saw the patient personally and performed a substantive portion of the visit. This includes aspects of the HPI, MDM, diagnostic interpretations, and disposition/plan. The patient is altered. She is tachycardic and febrile. She was recently being treated for UTI. Record review indicates she had a pansensitive E. coli as well as greater than 100,000 CFU of Heaven. IV fluids were administered. She received IV Tylenol. IV cefepime and vancomycin administered. Patient is altered. P aperwork indicates DNR. Attempts at contact family from the nursing facility were unsuccessful. We attempted as well and the calls went straight to voicemail. .
[2022-02-25 08:11] LABS: Appearance Urine Turbid (Clear); Bacteria Urine Automated 1+ (Negative); Bilirubin Urine Negative (Negative); Blood Urine 3+ (Negative); Color Urine Orange; Epithelial Cell Urine Auto >30 /lpf (0-5); Glucose Urine UA 3+ (Negative); Ketones Urine 4+ (Negative); Leukocyte Esterase Urine 2+ (Negative); Nitrite Urine Negative (Negative); Protein Urine 2+ (Negative); Specific Gravity Urine 1.033 (1.000-1.030); Urobilinogen Urine Negative (Negative); WBC Urine Automated >30 /hpf (0-5)
[2022-02-25 08:37] LABS: Base Excess VBG -11.4 mEq/L; Oxygen Saturation VBG 97.1 %; pH VBG 7.36 (7.36-7.41)
--- NOTE | 2022-02-25 08:42 | CT Scan Report ---
CT SCAN OF THE BRAIN WITHOUT IV CONTRAST CLINICAL HISTORY: Lethargy. Left-sided weakness. COMPARISON STUDY: No priors. TECHNIQUE: Unenhanced axial CT scan of the brain is performed from the vertex to the skull base. A do se lowering technique was utilized adhering to the principles of ALARA. FINDINGS: Brain parenchyma: There are age-related involutional changes noting moderate confluent subcortical a nd periventricular microangiopathic change. There is no hemorrhage, mass effect, or evidence of acute territorial ischemia by CT criteria. Mistry-white matter differentiation is preserved. No extra-axial fluid collection is seen. Ventricles, sulci, cisterns: Prominent secondary to involutional change. Intracranial vasculature: There is atherosclerotic calcification of the cavernous carotid and vertebr al arteries. Calvarium: Unremarkable. Sinuses and mastoids: The visualized paranasal sinuses are clear. The mastoid air cells are well pneu matized. Orbits: The bony orbits are grossly intact. There are bilateral ocular lens implants IMPRESSION: There is no hemorrhage, mass effect, or evidence of acute territorial ischemia by CT nils villatoro. ACT 112: Negative or not required by law. Electronically signed by: Joel Mckinney M.D. 02/25/2022 8:41 AM
--- NOTE | 2022-02-25 08:53 | XRay Report ---
SINGLE VIEW CHEST CLINICAL HISTORY: Sepsis. Lethargy. FINDINGS: An AP, portable, upright chest radiograph is obtained. No prior studies are available for c omparison at the time of dictation. The heart is top normal for projection. The pulmonary vasculatur e is noncongested. There is mild elevation of the right hemidiaphragm and chronic interstitial thicke jarred. No airspace consolidation or large pleural effusion is identified. No pneumothorax is seen. The skeletal structures are osteopenic. Advanced arthritic change is seen in the left shoulder. There is chronic posttraumatic deformity of the left clavicle. Fusion hardware is noted in the lower cervical spine. IMPRESSION: No acute cardiopulmonary abnormality. ACT 112: Negative or not required by law. Electronically signed by: Joel Mckinney M.D. 02/25/2022 8:52 AM
--- NOTE | 2022-02-25 08:53 | CT Scan Report ---
CT abd pelvis wo con CLINICAL HISTORY: AMS, recent UTI. TECHNIQUE: Helical axial images of the abdomen and pelvis were obtained. Automated dose lowering tech niques and/or adjustment according to patient size were utilized for this exam. This exam was perfor med without intravenous contrast. CT DOSE: 2397.54 mGy.cm COMPARISON: None available at the time of this dictation. FINDINGS: Lower chest: Mitral annular calcification is seen. Incidental note is made of subcentimeter paraesop hageal nodes. Liver: Unremarkable. No focal lesions are seen. Gallbladder and biliary tree: There is prominence of the gallbladder. No intra- or extrahepatic bilia ry ductal dilation. Pancreas: Fatty replacement of the pancreas is seen. Spleen: Unremarkable. Adrenals: Unremarkable. Kidneys and ureters: Unremarkable. Bladder: Schwab catheter is seen. Reproductive organs: Unremarkable. Bowel: A hiatal hernia is seen. Lymph nodes Retroperitoneal: Unremarkable. Mesenteric: Unremarkable. Pelvic: Unremarkable. Peritoneum: Normal. Vessels: Unremarkable. Abdominal wall: Small fat-containing bilateral inguinal hernias are seen. There is a fat-containing r ight ventral hernia. Bones: Degenerative changes in the visualized spine. Grade 1 anterolisthesis of L4-L5 is seen. IMPRESSION: No evidence of acute abnormality. ACT 112: Negative or not required by law. Electronically signed by: Fly Reina M.D. 02/25/2022 8:51 AM
[2022-02-25 08:58] LABS: INR 1.3 (0.9-1.1); Partial Thromboplastin Ratio 0.7; Partial Thromboplastin Time 20.3 Seconds (21.0-31.0); Prothrombin Time 14.1 Seconds (9.0-12.0)
[2022-02-25 09:13] LABS: Adenovirus PCR Not Detected (NotDetected); Bordetella parapertussis PCR Not Detected (NotDetected); Bordetella pertussis PCR Not Detected (NotDetected); Chlamydia pneumoniae PCR Not Detected (NotDetected); Coronavirus 229E PCR Not Detected (NotDetected); Coronavirus CoV-2 (COVID19)PCR Not Detected (NotDetected); Coronavirus HKU1 PCR Not Detected (NotDetected); Coronavirus NL63 PCR Not Detected (NotDetected); Coronavirus OC43PCR Not Detected (NotDetected); Human Metapneumovirus PCR Not Detected (NotDetected); Influenza A PCR Not Detected (NotDetected); Influenza B PCR Not Detected (NotDetected); Mycoplasma pneumoniae PCR Not Detected (NotDetected); Parainfluenza Virus 1 PCR Not Detected (NotDetected); Parainfluenza Virus 2 PCR Not Detected (NotDetected); Parainfluenza Virus 3 PCR Not Detected (NotDetected); Parainfluenza Virus 4 PCR Not Detected (NotDetected); Respiratory Syncytial VirusPCR Not Detected (NotDetected); Rhinovirus/Enterovirus PCR Not Detected (NotDetected)
[2022-02-25 09:48] LABS: Basophils # (auto) 0.02 K/uL (0-0.2); Basophils % (auto) 0.1 %; Hematocrit (blood only) 40.4 % (37-47); Hemoglobin 13.4 g/dL (12.0-16.0); Immature Granulocytes # (auto) 0.13 K/uL (0.00-0.02); Lymphocytes # (auto) 2.33 K/uL (1.2-3.4); Lymphocytes % (auto) 17.1 %; Mean Corpuscular Hemoglobin 27.1 pg (25-34); Mean Corpuscular Hgb Conc 33.2 g/dL (32-36); Mean Corpuscular Volume 81.8 fL (80-100); Mean Platelet Volume 8.6 fL (7.4-10.4); Monocytes # (auto) 0.77 K/uL (0.11-0.59); Monocytes % (auto) 5.7 %; Neutrophils # (auto) 10.36 K/uL (1.4-6.5); Neutrophils % (auto) 76.1 %; Platelet Count 456 K/uL (130-400); RDW Coefficient of Variation 16.4 % (11.5-14.5); RDW Standard Deviation 48.8 fL (36.4-46.3); Red Blood Count 4.94 M/uL (4.2-5.4); White Blood Count 13.61 K/uL (4.8-10.8)
[2022-02-25 10:04] LABS: Albumin Globulin Ratio 1.1 (0.9-2); Albumin Level 3.5 gm/dl (3.4-5.0); BUN Creatinine Ratio 31.9 (10-20); Bilirubin,Total 0.5 mg/dl (0.2-1.0); Calcium 10.2 mg/dl (8.5-10.1); Creatinine Clr Calc Pharmacy 47.6 ml/min; Est GFR (African American) 51.3 ml/min; Est GFR (Non-African American) 44.3 ml/min; Globulin 3.2 gm/dl (2.5-4.0); Magnesium 1.5 mg/dl (1.7-2.4); Potassium 4.2 mmol/L (3.5-5.1); Total Protein 6.7 gm/dl (6.0-8.3)
[2022-02-25 10:08] LABS: Troponin I High Sensitivity 24.4 pg/ml (0-14)
[2022-02-25 10:17] LABS: Thyroid Stimulating Hormone 0.109 uIu/ml (0.300-4.500)
--- NOTE | 2022-02-25 10:26 | Electrocardiogram Report ---
Test Reason : Blood Pressure : / mmHG Vent. Rate : 120 BPM Atrial Rate : 120 BPM P-R Int : 158 ms QRS Dur : 090 ms QT Int : 308 ms P-R-T Axes : 062 022 036 degrees QTc Int : 435 ms Sinus tachycardia Biatrial enlargement Low voltage QRS Poor R wave progression, consider anterior MS vs. lead placement vs. LVH Abnormal ECG When compared with ECG of 22-JUL-2020 13:51, Significant changes have occurred Confirmed by Chris Benedict ([id number]) on 02/25/2022 10:25:46 AM Referred By: Confirmed By:Chris Benedict
--- NOTE | 2022-02-25 10:26 | History & Physical Report ---
Date of Service February 25, 2022 Assessment & Plan (1) Sepsis: Plan: - Suspect source most likely UTI. - With elevated WBC, HR > 90 - WBC 13.61 - PCT- < .05 - Lactate- 0.7 - Blood CX- ngtd - Urine CX- multiple growth. Reordered repeat collection. - ABX- vancomycin and cefepime in ED, will continue this for now, also continue diflucan; treated as oupt started 02/21 with amoxicillin, Diflucan, cultures grew pansensitive E.Coli w/ jeanette albicans. Narrow based on repeat cultures above patient with downtrending leukocytosis but still with somnolence/lethargy (2) UTI (urinary tract infection): Plan: - Treat as above. (3) Left-sided weakness: Plan: - Reported new left sided facial droop, left sided weakness that developed around 0615 pre-hospital arrival, not seen at [facility]. - Initial head CT negative, MRI without acute finding/signs of stroke - Carotid dopplers showed no sonographic evidence of hemodynamically significant stenosis in the right or left carotid arterial system. - Echo pending A1c 9.6%, poorly controlled DM LDL 138, cholesterol 229 (4) Metabolic acidosis: Plan: - vBG: pCO2 21, pH 7.36, bicarb 12, O2 89, AG 22. - Unknown cause currently, no known ingestion, lactate 0.7, no known CKD - Salicylates < 3.0, APAP 14 (did receive Tylenol in ED for fever), EtOH < 10.0 -Gap closing, trend (5) Encephalopathy: Plan: - Per [facility] records, patient is alert, oriented and interactive at baseline with some mild confusion. Improving but still off baseline - LFTs normal, no evidence of liver failure. No head injuries, SpO2 99% on room air. - Continue to monitor medical course and response to treatment as above. (6) Elevated troponin: Plan: - 24.4, repeat 23.0, without symptoms of ACS although patient has been altered since her arrival. - EKG without ST segment or T wave changes, likely demand ischemia in setting of sepsis. -At bedtime troponin down trended to 15. (7) Hypomagnesemia: Plan: - Repleted (8) DM2 (diabetes mellitus, type 2): Plan: - Takes Jardiance, glipizide, metformin. Will hold these during hospitalization. - Basal insulin with accuchecks ACHS, SSI. - Admission sugar 245. - a1c poorly controlled, 9.6% - Continue Cymbalta for neuropathy. BSG 167 fasting, 139 [id number] recheck. Glargine increased to 12 units twice daily (9) Hypothyroid: Plan: -Continue levothyroxine 50 mcg daily. -TSH 0.109 on admission, free T4 0.92. (10) Overactive bladder: Plan: - Continue oxybutynin 10 mg daily. - Catheter in place. (11) GERD (gastroesophageal reflux disease): Plan: - Continue Protonix 40 mg daily. Plan: -Admit to med/surg tele. -SCDs, Lovenox for DVT ppx. -DNR/DNI. History of Present Illness Chief Complaint: lethargy, confusion Primary Care Provider: [facility] Ms. Cuong (Rae) is an 86 y/o female with PMH significant for HLD, hypothyroidism, DM2 with neuropathy, iron deficiency anemia, overactive bladder, gait dysfunction, generalized weakness, recurrent UTI, chronic low back pain, chronic left rotator cuff impingement syndrome and failure to thrive who presents today from [facility] with fever, tachycardia, and confusion since 0230 this AM. Per records, patient was recently treated for UTI with Jeanette infection starting 02/21 with amoxicillin and Diflucan. Last evening, she became febrile, tachycardic and this morning around 615 apparently had new left-sided weakness and left facial droop. This, along with changed her vital signs prompted her transfer to our facility for further evaluation. During my visit, patient is lethargic, sleeping, but arousable. She will open her eyes for me, smile when asked, and when asked if she is in pain she manages say no, then falls back to sleep and is unable to participate further in history or physical exam. In ED, she initially presented hypertensive 178/98, normotensive after fluids. HR in 120s, also down now to 106 after fluids, RR in 20s, SPO2 >95% on room air. Labs significant for WBC 13.61, lactate wnl 0.7, procalcitonin < 0.05. VBG with CO2 21, pH 7.36. AG 22. BUN 36. Glucose 245. Magnesium 1.5, HS troponin 24.4, repeat 23.0. TSH 0.109, free T4 0.92. UA with protein, glucose, ketones, blood, leuk esterase, >30 WBC, 1+ bacteria. Respiratory bio fire panel negative for all, blood and urine cultures pending. Head CT without hemorrhage, mass effect, or evidence of acute territorial ischemia. CT A/P without evidence of acute abnormality. CXR without acute cardiopulmonary abnormality. Patient received 500 cc NS IVF bolus, vancomycin, and cefepime in ED. Hospitalist service was consulted for further evaluation and admission. Allergies Allergy/AdvReac Type Severity Reaction Status Date / Time No Known Allergies Allergy Unverified 02/25/22 10:58 Home Medications Medication Instructions Recorded Confirmed Type acetaminophen 325 mg tablet 325 mg PO QID PRN 02/25/22 02/25/22 History amoxicillin 250 mg capsule 250 mg PO TID 02/25/22 02/25/22 History aspirin 81 mg capsule 81 mg PO QAM 02/25/22 02/25/22 History bisacodyl 10 mg rectal suppository 0 mg OR DAILY PRN 02/25/22 02/25/22 History (Dulcolax (bisacodyl)) diclofenac sodium 1 % topical gel 4 g TOPICAL BID PRN 02/25/22 02/25/22 History docusate sodium 100 mg tablet 100 mg PO BID PRN 02/25/22 02/25/22 History duloxetine 60 mg capsule,delayed 60 mg PO QAM 02/25/22 02/25/22 History release empagliflozin 25 mg tablet 50 mg PO DAILY 02/25/22 02/25/22 History (Jardiance) ferrous gluconate 325 mg (37 mg 324 mg PO DAILY 02/25/22 02/25/22 History iron) tablet fluconazole 100 mg tablet 100 mg PO QAM 02/25/22 02/25/22 History glipizide 5 mg tablet 5 mg PO BID 02/25/22 02/25/22 History insulin aspart U-100 100 unit/mL 0 sliding scale dose SUBCUT QID 02/25/22 02/25/22 History subcutaneous solution (Novolog U-100 Insulin aspart) lactulose 10 gram/15 mL oral 30 g PO DAILY PRN 02/25/22 02/25/22 History solution (Enulose) lanolin alcohols-mineral 1 applic TOPICAL BID 02/25/22 02/25/22 History oil-w.petrolatum-ceresin topical cream (Eucerin) levothyroxine 50 mcg tablet 50 mcg PO DAILY 02/25/22 02/25/22 History magnesium hydroxide 400 mg/5 mL 30 ml PO DAILY PRN 02/25/22 02/25/22 History oral suspension (Milk of Magnesia) menthol 0.44 %-zinc oxide 20.6 % 1 applic TOPICAL QID 02/25/22 02/25/22 History topical ointment metformin 1,000 mg tablet 1,000 mg PO BID 02/25/22 02/25/22 History mirabegron 25 mg tablet,extended 25 mg PO DAILY 02/25/22 02/25/22 History release 24 hr (Myrbetriq) multivitamin 1 tab PO QAM 02/25/22 02/25/22 History naproxen 500 mg tablet 500 mg PO Q12 PRN 02/25/22 02/25/22 History nystatin 100,000 unit/gram topical 1 applic TOPICAL TID 02/25/22 02/25/22 History powder (Nyamyc) nystatin-triamcinolone 100,000 1 applic TOPICAL TID 02/25/22 02/25/22 History unit/g-0.1 % topical cream oxybutynin chloride 10 mg 10 mg PO DAILY 02/25/22 02/25/22 History tablet,extended release 24 hr pantoprazole 40 mg tablet,delayed 40 mg PO DAILY 02/25/22 02/25/22 History release sodium phosphates 19 gram-7 0 ml OR DAILY PRN 02/25/22 02/25/22 History gram/118 mL enema (Fleet Enema) Past Med/Surg History Medical History DM2 (diabetes mellitus, type 2) GERD (gastroesophageal reflux disease) Hypothyroid Overactive bladder Social History Smoking Status: Never smoker Hx Alcohol Use: No Hx Substance Use: No Feels Safe at Home: Yes Review of Systems Review of Systems: Unobtainable due to cognitive status Physical Exam Physical Exam: General: lethargic but arousable, opens eyes, does not participate in exam further, falls back to sleep after Head: Normocephalic, atraumatic ENT: PERRL, EOMI, no pharyngeal exudate, mucous membranes dry Chest: Clear to auscultation, on room air, no adventitious breath sounds Cardiac: Regular rate and rhythm, no murmur, no JVD, normal peripheral pulses, good capillary refill Abdominal: NABS x 4 quadrants, soft, nontender to palpation, no rebound, guarding or tenderness Extremities: Normal inspection, b/l LE edema, calfs nontender to palpation Psych: Normal mood and affect Neuro: lethargic but alert, not able to assess orientation, strength, motor deficits, speech, sensation due to mental status Skin: no rash or erythema Results & Data Results & Data ([facility]) Vital Signs (Past 12 Hours) Vital Signs Temp Pulse Resp BP Pulse Ox 02/25/22 09:45 110 H 22 111/76 96 02/25/22 09:30 112 H 20 137/84 97 02/25/22 09:15 113 H 24 123/71 96 02/25/22 09:00 115 H 22 131/71 96 02/25/22 08:45 115 H 20 136/68 96 02/25/22 08:38 117 H 23 148/88 H 96 02/25/22 08:15 120 H 24 166/89 H 02/25/22 08:00 122 H 25 H 167/100 H 02/25/22 07:45 127 H 20 159/129 H 95 02/25/22 07:30 123 H 26 H 178/98 H 97 02/25/22 07:16 37.6 C H 120 H 24 181/102 H 95 Laboratory Results Abnormal lab results 02/25/22 02/25/22 02/25/22 Range/Units 07:51 08:13 08:16 WBC (4.8-10.8) K/uL RDW Std Deviation (36.4-46.3) fL RDW Coeff of Susanna (11.5-14.5) % Plt Count (130-400) K/uL Neut # (Auto) (1.4-6.5) K/uL Carter # (Auto) (0.11-0.59) K/uL Immature Gran # (Auto) (0.00-0.02) K/uL PT 14.1 H (9.0-12.0) Seconds INR 1.3 H (0.9-1.1) APTT 20.3 L (21.0-31.0) Seconds VBG pCO2 21 L (38-50) mmHg Chloride (98-107) mmol/L Carbon Dioxide (21-32) mmol/L Anion Gap (3-11) BUN (6-23) mg/dl BUN/Creatinine Ratio (10-20) Glucose (70-99(Fasting)) mg/dl Calcium (8.5-10.1) mg/dl Magnesium (1.7-2.4) mg/dl AST (13-39) U/L Troponin I High Sens (0-14) pg/ml TSH (0.300-4.500) uIu/ml Urine Appearance Turbid A (Clear) Ur Specific [place] 1.033 H (1.000-1.030) Urine Protein 2+ H (Negative) Urine Glucose (UA) 3+ H (Negative) Urine Ketones 4+ H (Negative) Urine Blood 3+ H (Negative) Ur Leukocyte Esterase 2+ H (Negative) Urine WBC (Auto) >30 H (0-5) /hpf Urine RBC (Auto) 10-30 H (0-4) /hpf U Epithel Cells (Auto) >30 H (0-5) /lpf Urine Bacteria (Auto) 1+ H (Negative) Salicylates (3.0-30) mg/dl 02/25/22 02/25/22 02/25/22 Range/Units 09:20 09:20 09:20 WBC 13.61 H (4.8-10.8) K/uL RDW Std Deviation 48.8 H (36.4-46.3) fL RDW Coeff of Susanna 16.4 H (11.5-14.5) % Plt Count 456 H (130-400) K/uL Neut # (Auto) 10.36 H (1.4-6.5) K/uL Carter # (Auto) 0.77 H (0.11-0.59) K/uL Immature Gran # (Auto) 0.13 H (0.00-0.02) K/uL PT (9.0-12.0) Seconds INR (0.9-1.1) APTT (21.0-31.0) Seconds VBG pCO2 (38-50) mmHg Chloride 108 H (98-107) mmol/L Carbon Dioxide 10 L (21-32) mmol/L Anion Gap 22 H (3-11) BUN 36 H (6-23) mg/dl BUN/Creatinine Ratio 31.9 H (10-20) Glucose 245 H (70-99(Fasting)) mg/dl Calcium 10.2 H (8.5-10.1) mg/dl Magnesium 1.5 L (1.7-2.4) mg/dl AST 12 L (13-39) U/L Troponin I High Sens 24.4 H (0-14) pg/ml TSH 0.109 L (0.300-4.500) uIu/ml Urine Appearance (Clear) Ur Specific [place]wood (1.000-1.030) Urine Protein (Negative) Urine Glucose (UA) (Negative) Urine Ketones (Negative) Urine Blood (Negative) Ur Leukocyte Esterase (Negative) Urine WBC (Auto) (0-5) /hpf Urine RBC (Auto) (0-4) /hpf U Epithel Cells (Auto) (0-5) /lpf Urine Bacteria (Auto) (Negative) Salicylates (3.0-30) mg/dl 02/25/22 02/25/22 Range/Units 11:05 11:05 WBC (4.8-10.8) K/uL RDW Std Deviation (36.4-46.3) fL RDW Coeff of Susanna (11.5-14.5) % Plt Count (130-400) K/uL Neut # (Auto) (1.4-6.5) K/uL Carter # (Auto) (0.11-0.59) K/uL Immature Gran # (Auto) (0.00-0.02) K/uL PT (9.0-12.0) Seconds INR (0.9-1.1) APTT (21.0-31.0) Seconds VBG pCO2 (38-50) mmHg Chloride (98-107) mmol/L Carbon Dioxide (21-32) mmol/L Anion Gap (3-11) BUN (6-23) mg/dl BUN/Creatinine Ratio (10-20) Glucose (70-99(Fasting)) mg/dl Calcium (8.5-10.1) mg/dl Magnesium (1.7-2.4) mg/dl AST (13-39) U/L Troponin I High Sens 23.0 H (0-14) pg/ml TSH (0.300-4.500) uIu/ml Urine Appearance (Clear) Ur Specific [place] (1.000-1.030) Urine Protein (Negative) Urine Glucose (UA) (Negative) Urine Ketones (Negative) Urine Blood (Negative) Ur Leukocyte Esterase (Negative) Urine WBC (Auto) (0-5) /hpf Urine RBC (Auto) (0-4) /hpf U Epithel Cells (Auto) (0-5) /lpf Urine Bacteria (Auto) (Negative) Salicylates < 3.0 L (3.0-30) mg/dl Diagnostic Findings Chest X-Ray 02/25/22 07:23 SINGLE VIEW CHEST CLINICAL HISTORY: Sepsis. Lethargy. FINDINGS: An AP, portable, upright chest radiograph is obtained. No prior studies are available for comparison at the time of dictation. The heart is top normal for projection. The pulmonary vasculature is noncongested. There is mild elevation of the right hemidiaphragm and chronic interstitial thickening. No airspace consolidation or large pleural effusion is identified. No pneumothorax is seen. The skeletal structures are osteopenic. Advanced arthritic change is seen in the left shoulder. There is chronic posttraumatic deformity of the left clavicle. Fusion hardware is noted in the lower cervical spine. IMPRESSION: No acute cardiopulmonary abnormality. ACT 112: Negative or not required by law. Electronically signed by: Joel Mckinney M.D. 02/25/2022 8:[address] 02/25/22 07:25 CT SCAN OF THE BRAIN WITHOUT IV CONTRAST CLINICAL HISTORY: Lethargy. Left-sided weakness. COMPARISON STUDY: No priors. TECHNIQUE: Unenhanced axial CT scan of the brain is performed from the vertex to the skull base. A dose lowering technique was utilized adhering to the principles of ALARA. FINDINGS: Brain parenchyma: There are age-related involutional changes noting moderate confluent subcortical and periventricular microangiopathic change. There is no hemorrhage, mass effect, or evidence of acute territorial ischemia by CT criteria. Mistry-white matter differentiation is preserved. No extra-axial fluid collection is seen. Ventricles, sulci, cisterns: Prominent secondary to involutional change. Intracranial vasculature: There is atherosclerotic calcification of the cavernous carotid and vertebral arteries. Calvarium: Unremarkable. Sinuses and mastoids: The visualized paranasal sinuses are clear. The mastoid air cells are well pneumatized. Orbits: The bony orbits are grossly intact. There are bilateral ocular lens implants IMPRESSION: There is no hemorrhage, mass effect, or evidence of acute te rritorial ischemia by CT criteria. ACT 112: Negative or not required by law. Electronically signed by: Joel Mckinney M.D. 02/25/2022 8:41 AM Abdomen/Pelvis CT 02/25/22 07:50 CT abd pelvis wo con CLINICAL HISTORY: AMS, recent UTI. TECHNIQUE: Helical axial images of the abdomen and pelvis were obtained. Automated dose lowering techniques and/or adjustment according to patient size were utilized for this exam. This exam was performed without intravenous contrast. CT DOSE: 2397.54 mGy.cm COMPARISON: None available at the time of this dictation. FINDINGS: Lower chest: Mitral annular calcification is seen. Incidental note is made of subcentimeter paraesophageal nodes. Liver: Unremarkable. No focal lesions are seen. Gallbladder and biliary tree: There is prominence of the gallbladder. No intra- or extrahepatic biliary ductal dilation. Pancreas: Fatty replacement of the pancreas is seen. Spleen: Unremarkable. Adrenals: Unremarkable. Kidneys and ureters: Unremarkable. Bladder: Schwab catheter is seen. Reproductive organs: Unremarkable. Bowel: A hiatal hernia is seen. Lymph nodes Retroperitoneal: Unremarkable. Mesenteric: Unremarkable. Pelvic: Unremarkable. Peritoneum: Normal. Vessels: Unremarkable. Abdominal wall: Small fat-containing bilateral inguinal hernias are seen. There is a fat-containing right ventral hernia. Bones: Degenerative changes in the visualized spine. Grade 1 anterolisthesis of L4-L5 is seen. IMPRESSION: No evidence of acute abnormality. ACT 112: Negative or not required by law. Electronically signed by: Fly Reina M.D. 02/25/2022 8:51 AM ECG Additional Comments: Sinus tachycardia Biatrial enlargement Low voltage QRS Poor R wave progression, consider anterior SC vs. lead placement vs. LVH Abnormal ECG When compared with ECG of 22-JUL-2020 13:51, Significant changes have occurred -Upon my review, no specific ST segment or T wave inversions. Code Status & VTE Plan Code Status DNR/DNI. Supervising Physician Co-Signing Physician Notes "Earlene" is an 86-year-old female with a past medical history of type 2 diabetes mellitus, chronic decline recently moved from [facility] to [facility] for SNF, [] who was referred for tachycardia and concern of fever. She has been undergoing treatment for UTI since 02/20 with cultures last week showing pansensitive E. coli and Jeanette albicans. She has been treated with amoxicillin and fluconazole per [facility] records since 02/20. Patient has an indwelling Schwab which is pending exchange. Patient seen at the bedside. Does have some trace left-sided facial asymmetry. Does not answer questions. Does squeeze fingers and open his eyes on command with vigorous encouragement, otherwise falls back asleep. Heart rate is regular, tachycardic. Lungs diminished but without overt wheezes/rales. Pupils equal and reactive to light. Fever, tachycardia suspect UTI Temperature 37.6 on admission, pulse 120 improved with fluid Lactate normal High-sensitivity troponin 23, trended. No territorial ST wave changes on EKG, suspect demand ischemia. No prior cardiac history. TTE pending. Leukocytosis to 13.61, no known vomiting VB.36/21/89/12. Anion gap 22. Increased AG compensated metabolic acidosis - Lactate negative, BSG 245, no known ingestions, no known renal dysfunction. ?decreased PO ketosis, APAP (adjust for 1g given on admit)/alcohol/salicylate ordered. Trend BMP. Fluids as above. Empiric antibiotic treatment pending cultures with additional fluconazole co verage for Jeanette as above BC pending. IV FM as above Type 2 diabetes mellitus Hold home Jardiance, glipizide, metformin On aspart sliding scale, convert to basal bolus as above Trend BMP BSG checks AC/at bedtime or every 6 hours if NPO - A1C pending Continue home Synthroid for hypothyroidism. Continue daily low-dose aspirin. PG Care Time/CCT Total # of Minutes Spent Total Time Spent with Patient: Total time spent is greater than 50% in coordination of care (as documented) at patient's floor/unit and/or counseling patient: Coding Level of Care Code 45036 Initial Inpt Care Lvl 3 Diagnoses Encephalopathy G93.40 Sepsis A41.9 Sepsis type: Escherichia coli Severe sepsis acute organ dysfunction type: encephalopathy Severe sepsis shock status: without septic shock UTI (urinary tract infection) N39.0 Hypomagnesemia E83.42 Elevated troponin R77.8 Left-sided weakness R53.1 DM2 (diabetes mellitus, type 2) E11.9 Hypothyroid E03.9 Metabolic acidosis E87.2 Overactive bladder N32.81 GERD (gastroesophageal reflux disease) K21.9 (1) Sepsis Sepsis type: Escherichia coli Severe sepsis acute organ dysfunction type: encephalopathy Severe sepsis shock status: without septic shock
[2022-02-25 10:50] LABS: T4 Free Thyroxine 0.92 ng/dl (0.61-1.60)
[2022-02-25] MEDS ORDERED: bisacodyL 10 MG SUPP PR PRN (11:10)
[2022-02-25] MEDS ORDERED: SOD PHOSPHATE/SOD BIPHOSPHATE ENEMA 132 ML BTL PR PRN (11:10)
[2022-02-25] MEDS ORDERED: MAGNESIUM HYDROXIDE SUSP 30 ML UDC PO PRN (11:10)
[2022-02-25] MEDS ORDERED: CARBOHYDRATES FOR HYPOGLYCEMIA PO PRN (11:20)
[2022-02-25] MEDS ORDERED: DEXTROSE 50% 50 ML SYRINGE IV PRN (11:20)
[2022-02-25] MEDS ORDERED: GLUCOSE 10 TABS/TUBE PO PRN (11:20)
[2022-02-25] MEDS ORDERED: GLUCOSE 40% GEL 15 GM TUBE PO PRN (11:20)
[2022-02-25] MEDS ORDERED: GLUCAGON FOR INJ 1 MG VIAL SQ PRN (11:20)
[2022-02-25] MEDS: MAGNESIUM SULFATE / D5W 1 GM/100 ML BAG IV SCH ×3 (11:33→15:10)
[2022-02-25 11:58] LABS: Acetaminophen 14 ug/ml (10-30); Salicylate < 3.0 mg/dl (3.0-30)
--- NOTE | 2022-02-25 12:26 | Ultrasound Report ---
ULTRASOUND OF THE CAROTID ARTERIES CLINICAL HISTORY: left sided weakness, facial droop, ? CVA COMPARISON: None available at the time of this dictation. TECHNIQUE: Real-time, grayscale, and color Doppler sonography of the carotid arteries is performed. I mages are reviewed in the transverse and longitudinal planes. FINDINGS: The carotid arteries are patent bilaterally and demonstrate antegrade flow. There is mild atheroscler otic plaque on the right and mild atherosclerotic plaque on the left. Normal doppler arterial wavefor ms are seen throughout. Velocity measurements are listed below. Common carotid peak systolic velocity (cm/sec): RIGHT: 61 LEFT: 83 ICA peak systolic velocity (cm/sec): RIGHT: 61 LEFT: 69 ICA/CC peak systolic ratio: RIGHT: 1.0 LEFT: 0.8 Antegrade flow was shown in the vertebral arteries. The external carotid arteries are patent. IMPRESSION: 1. There is no sonographic evidence of hemodynamically significant stenosis in the right or left car otid arterial system. 2. Antegrade flow is shown in the vertebral arteries. Society of Radiologists in Ultrasound consensus guidelines: Normal: ICA PSV is <125 cm/sec and no plaque or intimal thickening is visible sonographically additional criteria include ICA/CCA PSV ratio <2.0 and ICA EDV <40 cm/sec <50% ICA stenosis: ICA PSV is <125 cm/sec and plaque or intimal thickening is visible sonographically additional criteria include ICA/CCA PSV ratio <2.0 and ICA EDV <40 cm/sec 50-69% ICA stenosis: ICA PSV is 125-230 cm/sec and plaque is visible sonographically additional criteria include ICA/CCA PSV ratio of 2.0-4.0 and ICA EDV of 40-100 cm/sec ?70% ICA stenosis but less than near occlusion: ICA PSV is >230 cm/sec and visible plaque and luminal narrowing are seen at andres-scale and color Dopp ler ultrasound (the higher the Doppler parameters lie above the threshold of 230 cm/sec, the greater the likelihood of severe disease) additional criteria include ICA/CCA PSV ratio >4 and ICA EDV >100 cm/sec ACT 112: Negative or not required by law. Electronically signed by: Fly Reina M.D. 02/25/2022 12:25 PM
[2022-02-25] MEDS ORDERED: DOCUSATE SODIUM 100 MG CAP PO PRN (12:49)
[2022-02-25] MEDS: INSULIN ASPART PER UNIT SC SCH ×3 (14:48→21:21)
[2022-02-25] MEDS ORDERED: ONDANSETRON INJ 2 MG/ML 2 ML VIAL IV PRN (16:54)
[2022-02-25] MEDS ORDERED: ACETAMINOPHEN 325 MG TAB PO PRN (16:54)
[2022-02-25] MEDS ORDERED: POLYETHYLENE (MIRALAX) 17 GM PACK PO PRN (16:54)
[2022-02-25] MEDS: NYSTATIN POWDER 15GM BTL EXT SCH ×2 (17:08→22:08)
[2022-02-25] MEDS: LACTATED RINGER'S 1,000 ML IV SCH (17:46)
[2022-02-25] MEDS ORDERED: VANCOMYCIN HCL 1,750 MG in SODIUM CHLORIDE 0.9% 500 ML IV SCH (18:00)
[2022-02-25 18:42] LABS: Calcium 10.3 mg/dl (8.5-10.1); Creatinine Clr Calc Pharmacy 54.4 ml/min; Est GFR (African American) 54.2 ml/min; Est GFR (Non-African American) 46.8 ml/min; Potassium 4.2 mmol/L (3.5-5.1); Troponin I High Sensitivity 18.5 pg/ml (0-14)
--- NOTE | 2022-02-25 19:16 | Magnetic Resonance Report ---
MRI OF THE BRAIN WITHOUT CONTRAST CLINICAL HISTORY: Lethargy. Left-sided weakness.? CVA COMPARISON STUDY: Head CT performed earlier today. TECHNIQUE: Utilizing a 1.5 Ingrid magnet and dedicated coil, multiplanar, multiecho imaging of the bra in was performed without IV contrast. FINDINGS: There are no foci of restricted diffusion to suggest acute infarct. No acute intracranial h emorrhage, midline shift or mass effect is present. Ventricular dilatation is due to atrophy. Overall , there is moderate atrophy. White matter T2 hyperintense foci reflect small vessel disease. Basal ci sterns are patent. There are no extra-axial collections. Flow-voids for the major intracranial vessel s are present. Calvarial signal is within normal limits. There is no evidence for sinusitis. No masto id fluid is present. Orbits are unremarkable on this nondedicated exam. IMPRESSION: 1. No acute intracranial findings. 2. Moderate atrophy. 3. White matter T2 hyperintense foci consistent with small vessel disease. ACT 112: Negative or not required by law. Electronically signed by: Junior Sparrow M.D. 02/25/2022 7:14 PM
[2022-02-25] MEDS: ENOXAPARIN INJ 60 MG/0.6 ML SYR SQ SCH (21:13)
[2022-02-25] MEDS: FLUCONAZOLE 100 MG/50 ML BAG IV SCH (21:14)
[2022-02-25] MEDS: INSULIN GLARGINE SOLOSTAR 100 UNITS/ML 3 ML PEN SC SCH (21:16)
[2022-02-26] MEDS ORDERED: VANCOMYCIN HCL 1,250 MG in SODIUM CHLORIDE 0.9% 250 ML IV SCH (02:00)
[2022-02-26 05:50] LABS: Basophils # (auto) 0.03 K/uL (0-0.2); Basophils % (auto) 0.3 %; Eosinophils # (auto) 0.08 K/uL (0-0.5); Eosinophils % (auto) 0.7 %; Hematocrit (blood only) 39.2 % (37-47); Hemoglobin 12.9 g/dL (12.0-16.0); Immature Granulocytes # (auto) 0.06 K/uL (0.00-0.02); Immature Granulocytes % (auto) 0.5 %; Lymphocytes # (auto) 1.98 K/uL (1.2-3.4); Lymphocytes % (auto) 17.2 %; Mean Corpuscular Hemoglobin 27.1 pg (25-34); Mean Corpuscular Hgb Conc 32.9 g/dL (32-36); Mean Corpuscular Volume 82.4 fL (80-100); Mean Platelet Volume 8.5 fL (7.4-10.4); Monocytes # (auto) 0.63 K/uL (0.11-0.59); Monocytes % (auto) 5.5 %; Neutrophils # (auto) 8.74 K/uL (1.4-6.5); Neutrophils % (auto) 75.8 %; Platelet Count 461 K/uL (130-400); RDW Coefficient of Variation 16.6 % (11.5-14.5); RDW Standard Deviation 49.8 fL (36.4-46.3); Red Blood Count 4.76 M/uL (4.2-5.4); White Blood Count 11.52 K/uL (4.8-10.8)
[2022-02-26] MEDS: LACTATED RINGER'S 1,000 ML IV SCH ×2 (06:16→14:20)
[2022-02-26] MEDS: LEVOTHYROXINE SODIUM 50 MCG TABLET PO SCH (06:17)
[2022-02-26 06:23] LABS: Anion Gap 13 (3-11); BUN Creatinine Ratio 34.8 (10-20); Blood Urea Nitrogen 31 mg/dl (6-23); Calcium 10.1 mg/dl (8.5-10.1); Carbon Dioxide 19 mmol/L (21-32); Chloride 111 mmol/L (98-107); Chol HDL Ratio 8.5 (0-5); Cholesterol 229 mg/dl (0-200); Creatinine Clr Calc Pharmacy 63.7 ml/min; Est GFR (African American) 68.5 ml/min; Est GFR (Non-African American) 59.1 ml/min; Glucose 167 mg/dl (70-99(Fasting)); HDL Cholesterol 27 mg/dl; LDL Cholesterol Calculated 138 mg/dl; Magnesium 1.9 mg/dl (1.7-2.4); Sodium 143 mmol/L (136-145); Triglycerides 321 mg/dl (0-150); VLDL Cholesterol 64 mg/dl (0-30)
[2022-02-26 07:00] LABS: Estimated Average Glucose 229 mg/dl; Hemoglobin A1C 9.6 % (4.5-5.6)
[2022-02-26] MEDS: CEFEPIME 2,000 MG in SYRINGE 0 ML IV SCH (08:40)
[2022-02-26] MEDS: ENOXAPARIN INJ 60 MG/0.6 ML SYR SQ SCH ×2 (08:41→21:54)
[2022-02-26] MEDS: NYSTATIN POWDER 15GM BTL EXT SCH ×3 (08:43→21:57)
[2022-02-26] MEDS: INSULIN GLARGINE SOLOSTAR 100 UNITS/ML 3 ML PEN SC SCH ×2 (08:43→21:57)
[2022-02-26] MEDS: INSULIN ASPART PER UNIT SC SCH ×4 (08:48→21:56)
[2022-02-26] MEDS ORDERED: FLUCONAZOLE 100 MG TAB PO SCH (09:00)
[2022-02-26] MEDS: ASPIRIN 81 MG ECTAB PO SCH (10:52)
[2022-02-26] MEDS: DULoxetine HCL 60 MG CAP PO SCH (10:52)
[2022-02-26] MEDS: PANTOprazole 40 MG TAB PO SCH (10:53)
[2022-02-26] MEDS: OXYBUTYNIN CHLORIDE XL 5 MG TABCR PO SCH (10:53)
[2022-02-26] MEDS: MIRABEGRON ER 25 MG TAB PO SCH (10:53)
[2022-02-26] MEDS: FERROUS GLUCONATE 324 MG TAB PO SCH (10:53)
--- NOTE | 2022-02-26 13:04 | Hospitalist Progress Note ---
Date of Service February 26, 2022 Assessment & Plan (1) Sepsis: Plan: Below note was edited and generated 02/26. Plan changes were erroneously copied into HPI as well while reviewing PA H&P - 2/2 UTI. - With elevated WBC, HR > 90 on admit - WBC 13.61 on admit, downtrending - PCT- < .05 on admit - Lactate- 0.7 on admit - Blood CX- ngtd - Urine CX- multiple growth. Reordered repeat collection. - ABX- vancomycin and cefepime in ED, will continue this for now, also continue diflucan; treated as oupt started 02/21 with amoxicillin, Diflucan, cultures grew pansensitive E.Coli w/ jeanette albicans. Narrow based on repeat cultures above patient with downtrending leukocytosis but still with somnolence/lethargy (2) UTI (urinary tract infection): Plan: - Treat as above. (3) Left-sided weakness: Plan: - Reported new left sided facial droop, left sided weakness that developed around 0615 pre-hospital arrival, not seen at [facility]. - Initial head CT negative, MRI without acute finding/signs of stroke - Carotid dopplers showed no sonographic evidence of hemodynamically significant stenosis in the right or left carotid arterial system. - Echo pending A1c 9.6%, poorly controlled DM LDL 138, cholesterol 229 (4) Metabolic acidosis: Plan: - vBG: pCO2 21, pH 7.36, bicarb 12, O2 89, AG 22. - Unknown cause currently, no known ingestion, lactate 0.7, no known CKD - Salicylates < 3.0, APAP 14 (did receive Tylenol in ED for fever), EtOH < 10.0 -Gap closing, trend (5) Encephalopathy: Plan: - Per [facility] records, patient is alert, oriented and interactive at baseline with some mild confusion. Improving but still off baseline - LFTs normal, no evidence of liver failure. No head injuries, SpO2 99% on room air. - Continue to monitor medical course and response to treatment as above. (6) Elevated troponin: Plan: - 24.4, repeat 23.0, without symptoms of ACS although patient has been altered since her arrival. - EKG without ST segment or T wave changes, likely demand ischemia in setting of sepsis. -At bedtime troponin down trended to 15. (7) Hypomagnesemia: Plan: - Repleted (8) DM2 (diabetes mellitus, type 2): Plan: - Takes Jardiance, glipizide, metformin. Will hold these during hospitalization. - Basal insulin with accuchecks ACHS, SSI. - Admission sugar 245. - a1c poorly controlled, 9.6% - Continue Cymbalta for neuropathy. BSG 167 fasting, 139 [id number] recheck. Glargine increased to 12 units twice daily (9) Hypothyroid: Plan: -Continue levothyroxine 50 mcg daily. -TSH 0.109 on admission, free T4 0.92. (10) Overactive bladder: Plan: - Continue oxybutynin 10 mg daily. - Catheter in place. (11) GERD (gastroesophageal reflux disease): Plan: - Continue Protonix 40 mg daily. Plan: -Admit to med/surg tele. -SCDs, Lovenox for DVT ppx. -DNR/DNI. Admission and Anticipated Discharge Date Admission Date: February 25, 2022 Subjective Seen at bedside. Patient opens eyes to name, follows one-step commands (squeeze my hand, wiggle your toes) but does not offer much spontaneous speech. Does not answer questions, however when expressed that we will call family for update patient does open eyes and asks "why ". Otherwise falls back asleep and does not answer further questions. Review of Systems Review of Systems: Unobtainable due to cognitive status Physical Exam Physical Exam: General: Somnolent. NAD. Cooperative. HEENT: Atraumatic, normocephalic. Vision grossly intact, pupils equal and reactive to light. Unable to assess vision/hearing Pulm: CTAB A&P. -wheezes, -rales, -rhonchi. Symmetrical chest rise. No increase in work of breathing. No respiratory distress. Cardiac: RRR, -mrg. Radial pulses intact and symmetrical. Abdominal: Nontender, nondistended, soft. BS present. Extremities: Warm, dry. Unable to access strength/sensation due to patient enga gement/cognitive status Results & Data Results & Data ([facility]) Vital Signs (Past 12 Hours) Vital Signs Temp Pulse Pulse Resp BP Pulse Ox 02/26/22 11:43 36.0 C L 91 H 20 130/77 100 02/26/22 08:00 87 02/26/22 06:22 36.8 C 94 H 20 130/75 96 02/26/22 03:42 36.8 C 87 20 133/79 95 PG Care Time/CCT Total # of Minutes Spent Total Time Spent with Patient: Total time spent is greater than 50% in coordination of care (as documented) at patient's floor/unit and/or counseling patient: Coding Level of Care Code 30571 Subseq Hosp Care Lvl 2 Diagnoses Sepsis A41.9 UTI (urinary tract infection) N39.0 Left-sided weakness R53.1 Metabolic acidosis E87.2 Encephalopathy G93.40 Elevated troponin R77.8 Hypomagnesemia E83.42 DM2 (diabetes mellitus, type 2) E11.9 Hypothyroid E03.9 Overactive bladder N32.81 GERD (gastroesophageal reflux disease) K21.9
--- NOTE | 2022-02-26 14:59 | Pharmacy Report ---
Pharmacy Vanc AUC Short Note - Date of Service February 26, 2022 - Assessment & Plan Assessment * Ms Hutchins is an 86 year old F receiving Vancomycin for treatment of complicated UTI. * Pertinent microbiologic data includes: UCx from 02/17 with rangel sensitive E.coli and C.albicans -- pt was treated with amoxicillin and fluconazole outpt * Pt now with urosepsis. Broad spectrum abx initiated on admission. * Blood and urine cx pending. Plan Vancomycin * AUC/ISIDRO is the preferred PK/PD target for vancomycin * AUC guided dosing is effective and associated with decreased risk of nephrotoxicity compared to traditional trough targets * Vancomycin 2000mg IV x1, then: * Vanc 1250mg IV q24h initiated overnight. Due to improved renal function, this regimen was adjusted to Vanc 1500mg IV q18h today. * This regimen should produce trough level of ~19 mcg/mL and is predicted to achieve target AUC/ISIDRO of 400-600 mg/L.hr. It may be associated with a 16% risk of nephrotoxicity * Will evaluate a vancomycin level closer to steady-state. Cefepime 2gm IV q24h (will consider increasing to q12h if CrCl >60mL/min x2) Fluconazole 100mg IV daily Pharmacy will continue to follow and will adjust dose/frequency as necessary. Thank you.
--- NOTE | 2022-02-26 16:26 | XCELERA ---
[id number]
[2022-02-26] MEDS ORDERED: VANCOMYCIN HCL 1,500 MG in SODIUM CHLORIDE 0.9% 500 ML IV SCH (18:00)
[2022-02-26] MEDS: FLUCONAZOLE 100 MG/50 ML BAG IV SCH (22:55)
[2022-02-27] MEDS: LACTATED RINGER'S 1,000 ML IV SCH ×3 (04:38→20:34)
[2022-02-27] MEDS: LEVOTHYROXINE SODIUM 50 MCG TABLET PO SCH (05:35)
[2022-02-27] MEDS: INSULIN ASPART PER UNIT SC SCH ×4 (09:45→20:41)
[2022-02-27] MEDS: CEFEPIME 2,000 MG in SYRINGE 0 ML IV SCH ×2 (10:06→20:46)
[2022-02-27] MEDS: INSULIN GLARGINE SOLOSTAR 100 UNITS/ML 3 ML PEN SC SCH ×2 (10:07→20:42)
[2022-02-27] MEDS: FERROUS GLUCONATE 324 MG TAB PO SCH (10:08)
[2022-02-27] MEDS: PANTOprazole 40 MG TAB PO SCH (10:08)
[2022-02-27] MEDS: OXYBUTYNIN CHLORIDE XL 5 MG TABCR PO SCH (10:09)
[2022-02-27] MEDS: MIRABEGRON ER 25 MG TAB PO SCH (10:09)
[2022-02-27] MEDS: DULoxetine HCL 60 MG CAP PO SCH (10:10)
[2022-02-27] MEDS: ASPIRIN 81 MG ECTAB PO SCH (10:11)
[2022-02-27] MEDS: ENOXAPARIN INJ 60 MG/0.6 ML SYR SQ SCH ×2 (10:11→20:34)
[2022-02-27] MEDS: NYSTATIN POWDER 15GM BTL EXT SCH ×3 (10:12→20:46)
[2022-02-27 10:42] LABS: Appearance Urine Clear (Clear); Bacteria Urine Automated Negative (Negative); Bilirubin Urine Negative (Negative); Blood Urine Trace (Negative); Color Urine Yellow; Epithelial Cell Urine Auto >30 /lpf (0-5); Glucose Urine UA 3+ (Negative); Ketones Urine 3+ (Negative); Leukocyte Esterase Urine Negative (Negative); Nitrite Urine Negative (Negative); Protein Urine 1+ (Negative); Specific Gravity Urine 1.028 (1.000-1.030); Urobilinogen Urine Negative (Negative); WBC Urine Automated >30 /hpf (0-5)
--- NOTE | 2022-02-27 13:32 | Hospitalist Progress Note ---
Date of Service February 27, 2022 Assessment & Plan (1) Sepsis: Plan: Sepsis, improved - 2/[address] A/P: No evidence of acute abnormality including evidence of hydronephrosis - With elevated WBC, HR > 90 on admit - WBC 13.61 on admit, downtrended - PCT- < .05 on admit - Lactate- 0.7 on admit - Blood CX- ngtd - Urine CX- multiple growth. Repeat cath specimen pending - ABX- vancomycin and cefepime in ED, along with Diflucan Vancomycin narrowed, continue cefepime/Diflucan pending culture results above. Patient was a [facility] resident but is not currently abed hold, has some placement issues related to finances and will Medicare qualification prior to discharge. Discussed with case management, clinically improving. medically stable at this time. (2) UTI (urinary tract infection): Plan: - Treat as above. (3) Left-sided weakness: Plan: - Reported new left sided facial droop, left sided weakness that developed around 0615 pre-hospital arrival, not seen at [facility]. Patient with symmetrical strength at bedside assessment to hand squeeze, limited engagement. - Initial head CT negative, MRI without acute finding/signs of stroke - Carotid dopplers showed no sonographic evidence of hemodynamically significant stenosis in the right or left carotid arterial system. - Echo with no evidence of emboli, normal LV systolic function, severe mitral annular calcification, RVSP normal A1c 9.6%, poorly controlled DM LDL 138, cholesterol 229 (4) Metabolic acidosis: Plan: - vBG: pCO2 21, pH 7.36, bicarb 12, O2 89, AG 22. - Unknown cause currently, no known ingestion, lactate 0.7, no known CKD - Salicylates < 3.0, APAP 14 (did receive Tylenol in ED for fever), EtOH < 10.0 -Gap closing, trended, pending repeat labs (5) Encephalopathy: Plan: - Per [facility] records, patient is alert, oriented and interactive at baseline with some mild confusion. Improving but still off baseline - LFTs normal, no evidence of liver failure. No head injuries, SpO2 99% on room air. - Continue to monitor medical course and response to treatment as above. (6) Elevated troponin: Plan: - 24.4, repeat 23.0, without symptoms of ACS although patient has been altered since her arrival. - EKG without ST segment or T wave changes, likely demand ischemia in setting of sepsis. -At bedtime troponin down trended to 15. (7) Hypomagnesemia: Plan: - Repleted (8) DM2 (diabetes mellitus, type 2): Plan: - Takes Jardiance, glipizide, metformin. Will hold these during hospitalization. - Basal insulin with accuchecks ACHS, SSI. - Admission sugar 245. - a1c poorly controlled, 9.6% - Continue Cymbalta for neuropathy. BSG 167 fasting, 139 lhrui-zz-cqiw recheck. Glargine increased to 12 units twice daily (9) Hypothyroid: Plan: -Continue levothyroxine 50 mcg daily. -TSH 0.109 on admission, free T4 0.92. (10) Overactive bladder: Plan: - Continue oxybutynin 10 mg daily. - Catheter in place. (11) GERD (gastroesophageal reflux disease): Plan: - Continue Protonix 40 mg daily. Plan: -Admit to med/surg tele. -SCDs, Lovenox for DVT ppx. -DNR/DNI. Admission and Anticipated Discharge Date Admission Date: February 25, 2022 Subjective Seen at bedside. Patient opens eyes to name, follows one-step commands, denies pain, does not offer much spontaneous speech. Falls back asleep easily. Review of Systems Review of Systems: All systems reviewed & are unremarkable except as noted in Subjective Physical Exam Physical Exam: General: Somnolent. NAD. Cooperative. HEENT: Atraumatic, normocephalic. Vision grossly intact, pupils equal and reactive to light. Unable to assess vision/hearing Pulm: CTAB A&P. -wheezes, -rales, -rhonchi. Symmetrical chest rise. No increase in work of breathing. No respiratory distress. Cardiac: RRR, -mrg. Radial pulses intact and symmetrical. Abdominal: Nontender, nondistended, soft. BS present. Extremities: Warm, dry. Unable to access strength/sensation due to patient engagement/cognitive status. Does open eyes to soft touch on ankle. Results & Data Results & Data ([facility]) Vital Signs (Past 12 Hours) Vital Signs Temp Pulse Pulse Pulse Resp BP BP 02/27/22 11:00 36.5 C 73 16 142/82 H 02/27/22 08:00 36.5 C 78 20 182/96 H 02/27/22 07:23 77 02/27/22 04:00 35.7 C L 78 18 139/76 Pulse Ox 02/27/22 11:00 99 02/27/22 08:00 98 02/27/22 07:23 02/27/22 04:00 100 PG Care Time/CCT Total # of Minutes Spent Total Time Spent with Patient: Total time spent is greater than 50% in coordination of care (as documented) at patient's floor/unit and/or counseling patient: Coding Level of Care Code 47594 Subseq Hosp Care Lvl 2 Diagnoses Sepsis A41.9 UTI (urinary tract infection) N39.0 Left-sided weakness R53.1 Metabolic acidosis E87.2 Encephalopathy G93.40 Elevated troponin R77.8 Hypomagnesemia E83.42 DM2 (diabetes mellitus, type 2) E11.9 Hypothyroid E03.9 Overactive bladder N32.81 GERD (gastroesophageal reflux disease) K21.9
[2022-02-27 14:59] LABS: Basophils # (auto) 0.03 K/uL (0-0.2); Basophils % (auto) 0.2 %; Eosinophils # (auto) 0.08 K/uL (0-0.5); Eosinophils % (auto) 0.6 %; Hematocrit (blood only) 38.9 % (37-47); Hemoglobin 12.6 g/dL (12.0-16.0); Immature Granulocytes % (auto) 0.7 %; Lymphocytes # (auto) 1.88 K/uL (1.2-3.4); Lymphocytes % (auto) 13.3 %; Mean Corpuscular Hemoglobin 26.7 pg (25-34); Mean Corpuscular Hgb Conc 32.4 g/dL (32-36); Mean Corpuscular Volume 82.4 fL (80-100); Mean Platelet Volume 9.3 fL (7.4-10.4); Monocytes % (auto) 4.2 %; Neutrophils # (auto) 11.47 K/uL (1.4-6.5); Platelet Count 423 K/uL (130-400); RDW Coefficient of Variation 16.6 % (11.5-14.5); RDW Standard Deviation 50.1 fL (36.4-46.3); Red Blood Count 4.72 M/uL (4.2-5.4); White Blood Count 14.16 K/uL (4.8-10.8)
[2022-02-27 15:18] LABS: Anion Gap 13 (3-11); BUN Creatinine Ratio 34.4 (10-20); Blood Urea Nitrogen 21 mg/dl (6-23); Calcium 9.8 mg/dl (8.5-10.1); Carbon Dioxide 17 mmol/L (21-32); Chloride 113 mmol/L (98-107); Creatinine Clr Calc Pharmacy 94.5 ml/min; Est GFR (African American) 95.8 ml/min; Est GFR (Non-African American) 82.7 ml/min; Glucose 179 mg/dl (70-99(Fasting)); Sodium 143 mmol/L (136-145)
[2022-02-27] MEDS: FLUCONAZOLE 100 MG/50 ML BAG IV SCH (20:33)
[2022-02-28] MEDS: LACTATED RINGER'S 1,000 ML IV SCH ×3 (05:17→09:32)
[2022-02-28] MEDS: ENOXAPARIN INJ 60 MG/0.6 ML SYR SQ SCH ×2 (06:04→18:34)
[2022-02-28] MEDS: LEVOTHYROXINE SODIUM 50 MCG TABLET PO SCH ×2 (06:04→06:08)
[2022-02-28] MEDS: MIRABEGRON ER 25 MG TAB PO SCH (08:24)
[2022-02-28] MEDS: DULoxetine HCL 60 MG CAP PO SCH (08:25)
[2022-02-28] MEDS: INSULIN GLARGINE SOLOSTAR 100 UNITS/ML 3 ML PEN SC SCH ×2 (08:25→21:12)
[2022-02-28] MEDS: OXYBUTYNIN CHLORIDE XL 5 MG TABCR PO SCH (08:25)
[2022-02-28] MEDS: FERROUS GLUCONATE 324 MG TAB PO SCH (08:25)
[2022-02-28] MEDS: ASPIRIN 81 MG ECTAB PO SCH (08:25)
[2022-02-28] MEDS: PANTOprazole 40 MG TAB PO SCH (08:25)
[2022-02-28] MEDS: NYSTATIN POWDER 15GM BTL EXT SCH ×3 (08:26→21:11)
[2022-02-28] MEDS: INSULIN ASPART PER UNIT SC SCH ×4 (08:27→21:11)
[2022-02-28 08:29] LABS: Basophils # (auto) 0.06 K/uL (0-0.2); Basophils % (auto) 0.6 %; Eosinophils # (auto) 0.31 K/uL (0-0.5); Hematocrit (blood only) 37.9 % (37-47); Hemoglobin 12.5 g/dL (12.0-16.0); Immature Granulocytes # (auto) 0.16 K/uL (0.00-0.02); Immature Granulocytes % (auto) 1.5 %; Lymphocytes # (auto) 3.22 K/uL (1.2-3.4); Mean Corpuscular Hemoglobin 26.5 pg (25-34); Mean Corpuscular Volume 80.3 fL (80-100); Mean Platelet Volume 9.1 fL (7.4-10.4); Monocytes # (auto) 0.73 K/uL (0.11-0.59); Neutrophils # (auto) 5.92 K/uL (1.4-6.5); Neutrophils % (auto) 56.9 %; Platelet Count 356 K/uL (130-400); RDW Coefficient of Variation 16.5 % (11.5-14.5); RDW Standard Deviation 47.8 fL (36.4-46.3); Red Blood Count 4.72 M/uL (4.2-5.4)
[2022-02-28] MEDS: CEFEPIME 2,000 MG in SYRINGE 0 ML IV SCH ×2 (08:30→21:10)
[2022-02-28 09:10] LABS: Potassium 4.2 mmol/L (3.5-5.1)
[2022-02-28 09:11] LABS: BUN Creatinine Ratio 25.5 (10-20); Calcium 9.7 mg/dl (8.5-10.1); Creatinine Clr Calc Pharmacy 104.8 ml/min; Est GFR (African American) 99.1 ml/min; Est GFR (Non-African American) 85.5 ml/min
--- NOTE | 2022-02-28 13:17 | Hospitalist Progress Note ---
Date of Service February 28, 2022 Assessment & Plan (1) Sepsis: Plan: Sepsis, improved - 2/[address] A/P: No evidence of acute abnormality including evidence of hydronephrosis - With elevated WBC, HR > 90 on admit - WBC 13.61 on admit, downtrended - PCT- < .05 on admit - Lactate- 0.7 on admit - Blood CX- ngtd - Urine CX- multiple growth. Repeat cath specimen with GNB pending speciation - ABX- vancomycin and cefepime in ED, along with Diflucan Vancomycin narrowed, continue cefepime/Diflucan pending culture results above. Patient was a [facility] resident but is not currently abed hold, has some placement issues related to finances and will Medicare qualification prior to discharge. Alertness and overall condition improved today, urinary culture positive for gram-negative bacilli. Continuing antibiotics as noted pending speciation. Placement being arranged, case management following. Patient is progressing and clinically stable for placement when available (2) UTI (urinary tract infection): Plan: - Treat as above. (3) Left-sided weakness: Plan: - Reported new left sided facial droop, left sided weakness that developed around 0615 pre-hospital arrival, not seen at [facility]. Patient with symmetrical strength at bedside assessment to hand squeeze, limited engagement. - Initial head CT negative, MRI without acute finding/signs of stroke - Carotid dopplers showed no sonographic evidence of hemodynamically significant stenosis in the right or left carotid arterial system. - Echo with no evidence of emboli, normal LV systolic function, severe mitral annular calcification, RVSP normal A1c 9.6%, poorly controlled DM LDL 138, cholesterol 229 (4) Metabolic acidosis: Plan: - vBG: pCO2 21, pH 7.36, bicarb 12, O2 89, AG 22. - Unknown cause currently, no known ingestion, lactate 0.7, no known CKD - Salicylates < 3.0, APAP 14 (did receive Tylenol in ED for fever), EtOH < 10.0 -Gap normalized (5) Encephalopathy: Plan: - Per [facility] records, patient is alert, oriented and interactive at baseline with some mild confusion. Improving but still off baseline - LFTs normal, no evidence of liver failure. No head injuries, SpO2 99% on room air. - Continue to monitor medical course and response to treatment as above. (6) Elevated troponin: Plan: - 24.4, repeat 23.0, without symptoms of ACS although patient has been altered since her arrival. - EKG without ST segment or T wave changes, likely demand ischemia in setting of sepsis. -During admission troponin down trended to 15. (7) Hypomagnesemia: Plan: - Repleted (8) DM2 (diabetes mellitus, type 2): Plan: - Takes Jardiance, glipizide, metformin. Will hold these during hospitalization. - Basal insulin with accuchecks ACHS, SSI. - Admission sugar 245. - a1c poorly controlled, 9.6% - Continue Cymbalta for neuropathy. BSG 167 fasting, 139 [id number] recheck. Glargine 12 units twice daily (9) Hypothyroid: Plan: -Continue levothyroxine 50 mcg daily. -TSH 0.109 on admission, free T4 0.92. (10) Overactive bladder: Plan: - Continue oxybutynin 10 mg daily. - Catheter in place. (11) GERD (gastroesophageal reflux disease): Plan: - Continue Protonix 40 mg daily. Plan: -Admit to med/surg tele. -SCDs, Lovenox for DVT ppx. -DNR/DNI. Admission and Anticipated Discharge Date Admission Date: February 25, 2022 Subjective Improved alertness today. Has been tolerating some foods, had broccoli soup yesterday. Does give name and is oriented to hospital, otherwise minimal spontaneous speech and engagement. Does track with eyes. No acute focal neurologic deficits. Right and left instruction dean strength intact, follows commands to squeeze fingers with symmetrical strength. Does not follow two-step commands. Denies pain. Review of Systems Review of Systems: Unobtainable due to cognitive status Physical Exam Physical Exam: General: Oriented to name and hospital. NAD. Cooperative. HEENT: Atraumatic, normocephalic. Vision/hearing grossly intact, pupils equal and reactive to light. Pulm: CTAB A&P. -wheezes, -rales, -rhonchi. Symmetrical chest rise. No increase in work of breathing. No respiratory distress. Cardiac: RRR, -mrg. Radial pulses intact and symmetrical. Abdominal: Nontender, nondistended, soft. BS present. Extremities: Warm, dry. Strength and ankle plantarflexion symmetrical, patient does not follow two-step commands Results & Data Results & Data ([facility]) Vital Signs (Past 12 Hours) Vital Signs Temp Pulse Pulse Pulse Resp BP Pulse Ox 02/28/22 10:55 36.6 C 64 18 144/79 H 96 02/28/22 08:09 36.8 C 63 18 172/84 H 90 02/28/22 07:55 62 02/28/22 03:34 36.6 C 71 14 126/78 99 02/28/22 03:31 67 PG Care Time/CCT Total # of Minutes Spent Total Time Spent with Patient: Total time spent is greater than 50% in coordination of care (as documented) at patient's floor/unit and/or counseling patient: Coding Level of Care Code 28799 Subseq Hosp Care Lvl 2 Diagnoses Sepsis A41.9 UTI (urinary tract infection) N39.0 Left-sided weakness R53.1 Metabolic acidosis E87.2 Encephalopathy G93.40 Elevated troponin R77.8 Hypomagnesemia E83.42 DM2 (diabetes mellitus, type 2) E11.9 Hypothyroid E03.9 Overactive bladder N32.81 GERD (gastroesophageal reflux disease) K21.9
[2022-02-28] MEDS: FLUCONAZOLE 100 MG/50 ML BAG IV SCH (20:50)
[2022-03-01] MEDS: ENOXAPARIN INJ 60 MG/0.6 ML SYR SQ SCH ×2 (06:33→18:39)
[2022-03-01] MEDS: LEVOTHYROXINE SODIUM 50 MCG TABLET PO SCH (06:34)
--- NOTE | 2022-03-01 07:15 | Hospitalist Progress Note ---
Date of Service March 01, 2022 Assessment & Plan (1) Sepsis: Plan: Sepsis, improved - 2/[address] A/P: No evidence of acute abnormality including evidence of hydronephrosis - On admit WBC 13.6, downtrended. PCT wnl, lactate wnl - Blood CX- ngtd - Urine CX- multiple growth, reculture as below - Repeat urine culture positive for pseudomonal UTI, pansensitive - ABX- vancomycin and cefepime in ED, along with Diflucan on admission, vancomycin subsequently narrowed - Given symptomatic with re-cultures with treat jeanette for 14 day total course -We will continue pseudomonal coverage until 03/05, will repeat Schwab exchange for biofilm 03/03 given past history Placement being arranged, case management following. Patient is progressing and clinically stable for placement when available -Discussed with center care. Current cognitive status is near her baseline there. Reviewed Schwab. Report Schwab removal trial had previously been attempted, however patient had recurrently had consistent repeated incontinence with wound breakdown and skin infection. On evaluation was reported as having neuromuscular dysfunction and recommended for chronic indwelling Schwab (2) UTI (urinary tract infection): Plan: - Treat as above. (3) Left-sided weakness: Plan: - Reported new left sided facial droop, left sided weakness that developed around 0615 pre-hospital arrival, not seen at [facility]. Patient with symmetrical strength at bedside assessment to hand squeeze, limited engagement. - Initial head CT negative, MRI without acute finding/signs of stroke - Carotid dopplers showed no sonographic evidence of hemodynamically significant stenosis in the right or left carotid arterial system. - Echo with no evidence of emboli, normal LV systolic function, severe mitral annular calcification, RVSP normal A1c 9.6%, poorly controlled DM LDL 138, cholesterol 229 (4) Metabolic acidosis: Plan: - vBG: pCO2 21, pH 7.36, bicarb 12, O2 89, AG 22. - Unknown cause currently, no known ingestion, lactate 0.7, no known CKD - Salicylates < 3.0, APAP 14 (did receive Tylenol in ED for fever), EtOH < 10.0 -Gap normalized (5) Encephalopathy: Plan: - Per [facility] records, patient is alert, oriented and interactive at baseline with some mild confusion. Improving but still off baseline - LFTs normal, no evidence of liver failure. No head injuries, SpO2 99% on room air. - Continue to monitor medical course and response to treatment as above. (6) Elevated troponin: Plan: - 24.4, repeat 23.0, without symptoms of ACS although patient has been altered since her arrival. - EKG without ST segment or T wave changes, likely demand ischemia in setting of sepsis. -During admission troponin down trended to 15. (7) Hypomagnesemia: Plan: - Repleted (8) DM2 (diabetes mellitus, type 2): Plan: - Takes Jardiance, glipizide, metformin. Will hold these during hospitalization. - Basal insulin with accuchecks ACHS, SSI. - Admission sugar 245. - a1c poorly controlled, 9.6% - Continue Cymbalta for neuropathy. BSG adequate control 03/01 (9) Hypothyroid: Plan: -Continue levothyroxine 50 mcg daily. -TSH 0.109 on admission, free T4 0.92. (10) Overactive bladder: Plan: - Continue oxybutynin 10 mg daily. - Catheter in place. -As noted reviewed catheter with center care. Is in place for neuromuscular dysfunction, prior voiding trials had failed and patient had had skin breakdown with infections as a result. Recommended for chronic indwelling Schwab. (11) GERD (gastroesophageal reflux disease): Plan: - Continue Protonix 40 mg daily. Plan: -Admit to med/surg tele. -SCDs, Lovenox for DVT ppx. -DNR/DNI. Admission and Anticipated Discharge Date Admission Date: February 25, 2022 Subjective Awake. Minimal spontaneous conversation. Denies pain. Subjective and review somewhat limited by cognitive status and engagement. Is eating some oatmeal at time of assessment. Denies stomach upset. Denies chest pain, chest pressure, pain at Schwab site, difficulty breathing. Discussed plan and placement review, and case management discussion with family to which patient replies "okay ". Did call center care to review patient. They report this is approximately what her baseline previously was. Also discussed fully. Report Schwab removal trial had previously been attempted, however patient had recurrently had consistent repeated incontinence with wound breakdown and skin infection. On evaluation was reported as having neuromuscular dysfunction and recommended for chronic indwelling Schwab Review of Systems Review of Systems: Unobtainable due to cognitive status Physical Exam Physical Exam: General: Oriented to name. NAD. Cooperative. HEENT: Atraumatic, normocephalic. Vision/hearing grossly intact, pupils equal and reactive to light. Pulm: CTAB A&P. -wheezes, -rales, -rhonchi. Symmetrical chest rise. No increase in work of breathing. No respiratory distress. Cardiac: RRR, -mrg. Radial pulses intact and symmetrical. Abdominal: Nontender, nondistended, soft. BS present. Extremities: Warm, dry. Strength and ankle plantarflexion symmetrical, patient does not follow two-step commands Results & Data Results & Data ([facility]) Vital Signs (Past 12 Hours) Vital Signs Temp Pulse Pulse Resp BP Pulse Ox 03/01/22 05:11 86 03/01/22 03:00 36.2 C L 82 18 128/77 98 02/28/22 23:00 36.8 C 76 18 128/78 97 PG Care Time/CCT Total # of Minutes Spent Total Time Spent with Patient: Total time spent is greater than 50% in coordination of care (as documented) at patient's floor/unit and/or counseling patient: Coding Level of Care Code 26492 Subseq Hosp Care Lvl 2 Diagnoses Sepsis A41.9 UTI (urinary tract infection) N39.0 Left-sided weakness R53.1 Metabolic acidosis E87.2 Encephalopathy G93.40 Elevated troponin R77.8 Hypomagnesemia E83.42 DM2 (diabetes mellitus, type 2) E11.9 Hypothyroid E03.9 Overactive bladder N32.81 GERD (gastroesophageal reflux disease) K21.9
[2022-03-01] MEDS: DULoxetine HCL 60 MG CAP PO SCH (08:19)
[2022-03-01] MEDS: FERROUS GLUCONATE 324 MG TAB PO SCH (08:19)
[2022-03-01] MEDS: PANTOprazole 40 MG TAB PO SCH (08:19)
[2022-03-01] MEDS: INSULIN GLARGINE SOLOSTAR 100 UNITS/ML 3 ML PEN SC SCH ×2 (08:19→21:02)
[2022-03-01] MEDS: OXYBUTYNIN CHLORIDE XL 5 MG TABCR PO SCH (08:19)
[2022-03-01] MEDS: MIRABEGRON ER 25 MG TAB PO SCH (08:19)
[2022-03-01] MEDS: ASPIRIN 81 MG ECTAB PO SCH (08:19)
[2022-03-01] MEDS: NYSTATIN POWDER 15GM BTL EXT SCH ×3 (08:20→21:03)
[2022-03-01] MEDS: INSULIN ASPART PER UNIT SC SCH ×4 (08:24→21:02)
[2022-03-01] MEDS: CEFEPIME 2,000 MG in SYRINGE 0 ML IV SCH ×2 (08:25→21:01)
[2022-03-01 08:53] LABS: Hematocrit (blood only) 36.7 % (37-47); Hemoglobin 11.9 g/dL (12.0-16.0); Mean Corpuscular Hemoglobin 26.4 pg (25-34); Mean Corpuscular Hgb Conc 32.4 g/dL (32-36); Mean Corpuscular Volume 81.4 fL (80-100); Mean Platelet Volume 9.5 fL (7.4-10.4); Platelet Count 386 K/uL (130-400); RDW Coefficient of Variation 16.4 % (11.5-14.5); RDW Standard Deviation 48.3 fL (36.4-46.3); Red Blood Count 4.51 M/uL (4.2-5.4); White Blood Count 8.98 K/uL (4.8-10.8)
[2022-03-01 09:00] LABS: Calcium 9.3 mg/dl (8.5-10.1); Creatinine Clr Calc Pharmacy 115.2 ml/min; Est GFR (African American) 102.3 ml/min; Est GFR (Non-African American) 88.3 ml/min
[2022-03-01] MEDS ORDERED: POTASSIUM CHLORIDE CRTAB 20 MEQ TABCR PO STA (09:56)
[2022-03-01] MEDS: MAGNESIUM OXIDE 400 MG TAB PO SCH (11:13)
[2022-03-01] MEDS: POTASSIUM CHLORIDE CRTAB 20 MEQ TABCR PO SCH ×2 (13:24→21:01)
[2022-03-01] MEDS: FLUCONAZOLE 100 MG/50 ML BAG IV SCH (20:56)
[2022-03-02] MEDS: LEVOTHYROXINE SODIUM 50 MCG TABLET PO SCH (06:01)
[2022-03-02] MEDS: ENOXAPARIN INJ 60 MG/0.6 ML SYR SQ SCH (06:02)
[2022-03-02] MEDS: OXYBUTYNIN CHLORIDE XL 5 MG TABCR PO SCH (07:43)
[2022-03-02] MEDS: ASPIRIN 81 MG ECTAB PO SCH (07:43)
[2022-03-02] MEDS: MIRABEGRON ER 25 MG TAB PO SCH (07:44)
[2022-03-02] MEDS: PANTOprazole 40 MG TAB PO SCH (07:44)
[2022-03-02] MEDS: DULoxetine HCL 60 MG CAP PO SCH (07:44)
[2022-03-02] MEDS: MAGNESIUM OXIDE 400 MG TAB PO SCH (07:44)
[2022-03-02] MEDS: NYSTATIN POWDER 15GM BTL EXT SCH ×2 (07:45→13:58)
[2022-03-02] MEDS: FERROUS GLUCONATE 324 MG TAB PO SCH (07:45)
[2022-03-02] MEDS: POTASSIUM CHLORIDE CRTAB 20 MEQ TABCR PO SCH ×2 (07:49→13:58)
[2022-03-02] MEDS: CEFEPIME 2,000 MG in SYRINGE 0 ML IV SCH (07:49)
[2022-03-02 08:28] LABS: Basophils # (auto) 0.04 K/uL (0-0.2); Basophils % (auto) 0.4 %; Eosinophils # (auto) 0.34 K/uL (0-0.5); Eosinophils % (auto) 3.6 %; Hematocrit (blood only) 35.3 % (37-47); Hemoglobin 11.7 g/dL (12.0-16.0); Immature Granulocytes # (auto) 0.13 K/uL (0.00-0.02); Immature Granulocytes % (auto) 1.4 %; Lymphocytes # (auto) 2.63 K/uL (1.2-3.4); Lymphocytes % (auto) 27.8 %; Mean Corpuscular Hemoglobin 26.8 pg (25-34); Mean Corpuscular Hgb Conc 33.1 g/dL (32-36); Mean Corpuscular Volume 80.8 fL (80-100); Mean Platelet Volume 9.2 fL (7.4-10.4); Monocytes # (auto) 0.61 K/uL (0.11-0.59); Monocytes % (auto) 6.4 %; Neutrophils # (auto) 5.72 K/uL (1.4-6.5); Neutrophils % (auto) 60.4 %; Platelet Count 335 K/uL (130-400); RDW Coefficient of Variation 16.5 % (11.5-14.5); RDW Standard Deviation 47.7 fL (36.4-46.3); Red Blood Count 4.37 M/uL (4.2-5.4); White Blood Count 9.47 K/uL (4.8-10.8)
[2022-03-02] MEDS: INSULIN GLARGINE SOLOSTAR 100 UNITS/ML 3 ML PEN SC SCH (08:44)
[2022-03-02] MEDS: INSULIN ASPART PER UNIT SC SCH ×3 (08:45→17:23)
[2022-03-02 08:47] LABS: BUN Creatinine Ratio 29.6 (10-20); Calcium 9.3 mg/dl (8.5-10.1); Creatinine Clr Calc Pharmacy 106.7 ml/min; Est GFR (African American) 99.7 ml/min; Potassium 3.9 mmol/L (3.5-5.1)
--- NOTE | 2022-03-02 11:32 | Hospitalist Progress Note ---
Date of Service March 02, 2022 Assessment & Plan (1) Sepsis: Plan: Sepsis, improved - 2/[address] A/P: No evidence of acute abnormality including evidence of hydronephrosis - On admit WBC 13.6, downtrended. PCT wnl, lactate wnl - Blood CX- ngtd - Urine CX- multiple growth, reculture as below - Repeat urine culture positive for pseudomonal UTI, pansensitive - ABX- vancomycin and cefepime in ED, along with Diflucan on admission, vancomycin subsequently narrowed - Given symptomatic with re-cultures with treat jeanette for 14 day total course -We will continue pseudomonal coverage until 03/05, will repeat Schwab exchange for biofilm 03/03 given past history Placement being arranged, case management following. Patient is progressing and clinically stable for placement when available -Discussed with center care. Current cognitive status is near her baseline there. Reviewed Schwab. Report Schwab removal trial had previously been attempted, however patient had recurrently had consistent repeated incontinence with wound breakdown and skin infection. On evaluation was reported as having neuromuscular dysfunction and recommended for chronic indwelling Schwab Did review with family 03/01. Patient is substantially below her baseline of a year ago, although they recognize her baseline has declined in center care since this time.Do feel that she is dramatically improved from when first admitted. Pursuing placement at this time (2) UTI (urinary tract infection): Plan: - Treat as above. (3) Left-sided weakness: Plan: - Reported new left sided facial droop, left sided weakness that developed around 0615 pre-hospital arrival, not seen at [facility]. Patient with symmetrical strength at bedside assessment to hand squeeze, limited engagement. - Initial head CT negative, MRI without acute finding/signs of stroke - Carotid dopplers showed no sonographic evidence of hemodynamically significant stenosis in the right or left carotid arterial system. - Echo with no evidence of emboli, normal LV systolic function, severe mitral a nnular calcification, RVSP normal A1c 9.6%, poorly controlled DM LDL 138, cholesterol 229 (4) Metabolic acidosis: Plan: - vBG: pCO2 21, pH 7.36, bicarb 12, O2 89, AG 22. - Unknown cause currently, no known ingestion, lactate 0.7, no known CKD - Salicylates < 3.0, APAP 14 (did receive Tylenol in ED for fever), EtOH < 10.0 -Gap normalized (5) Encephalopathy: Plan: - Per [facility] records, patient is alert, oriented and interactive at baseline with some mild confusion. Improving but still off baseline - LFTs normal, no evidence of liver failure. No head injuries, SpO2 99% on room air. - Continue to monitor medical course and response to treatment as above. (6) Elevated troponin: Plan: - 24.4, repeat 23.0, without symptoms of ACS although patient has been altered since her arrival. - EKG without ST segment or T wave changes, likely demand ischemia in setting of sepsis. -During admission troponin down trended to 15. (7) Hypomagnesemia: Plan: - Repleted (8) DM2 (diabetes mellitus, type 2): Plan: - Takes Jardiance, glipizide, metformin. Will hold these during hospitalization. - Basal insulin with accuchecks ACHS, SSI. - Admission sugar 245. - a1c poorly controlled, 9.6% - Continue Cymbalta for neuropathy. BSG adequate control currently (9) Hypothyroid: Plan: -Continue levothyroxine 50 mcg daily. -TSH 0.109 on admission, free T4 0.92. (10) Overactive bladder: Plan: - Continue oxybutynin 10 mg daily. - Catheter in place. -As noted reviewed catheter with center care. Is in place for neuromuscular dysfunction, prior voiding trials had failed and patient had had skin breakdown with infections as a result. Recommended for chronic indwelling Schwab. (11) GERD (gastroesophageal reflux disease): Plan: - Continue Protonix 40 mg daily. Plan: -Admit to med/surg tele. -SCDs, Lovenox for DVT ppx. -DNR/DNI. Admission and Anticipated Discharge Date Admission Date: February 25, 2022 Subjective Seen at bedside this morning. Patient continues to be more alert. Answers questions spontaneously. Is not oriented to place or year, but is oriented to name. Follows one-step commands, and some two-step commands appropriately. Denies pain. Denies chest pain, chest pressure, shortness of breath, difficulty breathing. Denies pain at Schwab site. Review of Systems Review of Systems: All systems reviewed & are unremarkable except as noted in Subjective Physical Exam Physical Exam: General: Oriented to name. NAD. Cooperative. HEENT: Atraumatic, normocephalic. Vision/hearing grossly intact, pupils equal and reactive to light. Pulm: CTAB A&P. -wheezes, -rales, -rhonchi. Symmetrical chest rise. No increase in work of breathing. No respiratory distress. Cardiac: RRR, -mrg. Radial pulses intact and symmetrical. Abdominal: Nontender, nondistended, soft. BS present. Extremities: Warm, dry. Strength and ankle plantarflexion symmetrical, patient does not follow two-step commands Results & Data Results & Data ([facility]) Vital Signs (Past 12 Hours) Vital Signs Temp Pulse Pulse Pulse Resp BP Pulse Ox 03/02/22 11:07 36.6 C 80 20 126/75 98 03/02/22 07:45 36.8 C 84 20 120/70 99 03/02/22 04:00 36.6 C 80 18 139/60 99 03/02/22 03:53 87 PG Care Time/CCT Total # of Minutes Spent Total Time Spent with Patient: Total time spent is greater than 50% in coordination of care (as documented) at patient's floor/unit and/or counseling patient: Coding Level of Care Code 62440 Subseq Hosp Care Lvl 1 Diagnoses Sepsis A41.9 UTI (urinary tract infection) N39.0 Left-sided weakness R53.1 Metabolic acidosis E87.2 Encephalopathy G93.40 Elevated troponin R77.8 Hypomagnesemia E83.42 DM2 (diabetes mellitus, type 2) E11.9 Hypothyroid E03.9 Overactive bladder N32.81 GERD (gastroesophageal reflux disease) K21.9
--- NOTE | 2022-03-02 15:34 | Discharge Summary ---
Date of Service March 02, 2022 Admission HPI Per Admitting Provider Ms. Cuong (Rae) is an 86 y/o female with PMH significant for HLD, hypothyroidism, DM2 with neuropathy, iron deficiency anemia, overactive bladder, gait dysfunction, generalized weakness, recurrent UTI, chronic low back pain, chronic left rotator cuff impingement syndrome and failure to thrive who presents today from [facility] with fever, tachycardia, and confusion since 0230 this AM. Per records, patient was recently treated for UTI with Jeanette infection starting 02/21 with amoxicillin and Diflucan. Last evening, she became febrile, tachycardic and this morning around 615 apparently had new left-sided weakness and left facial droop. This, along with changed her vital signs prompted her transfer to our facility for further evaluation. During my visit, patient is lethargic, sleeping, but arousable. She will open her eyes for me, smile when asked, and when asked if she is in pain she manages say no, then falls back to sleep and is unable to participate further in history or physical exam. In ED, she initially presented hypertensive 178/98, normotensive after fluids. HR in 120s, also down now to 106 after fluids, RR in 20s, SPO2 >95% on room air. Labs significant for WBC 13.61, lactate wnl 0.7, procalcitonin < 0.05. VBG with CO2 21, pH 7.36. AG 22. BUN 36. Glucose 245. Magnesium 1.5, HS troponin 24.4, repeat 23.0. TSH 0.109, free T4 0.92. UA with protein, glucose, ketones, blood, leuk esterase, >30 WBC, 1+ bacteria. Respiratory bio fire panel negative for all, blood and urine cultures pending. Head CT without hemorrhage, mass effect, or evidence of acute territorial ischemia. CT A/P without evidence of acute abnormality. CXR without acute cardiopulmonary abnormality. Patient received 500 cc NS IVF bolus, vancomycin, and cefepime in ED. Hospitalist service was consulted for further evaluation and admission. Principal Diagnosis UTI, sepsis culture positive for Jeanette albicans and Pseudomonas Discharge Exam General: Oriented to name. NAD. Cooperative. HEENT: Atraumatic, normocephalic. Vision/hearing grossly intact, pupils equal and reactive to light. Pulm: CTAB A&P. -wheezes, -rales, -rhonchi. Symmetrical chest rise. No increase in work of breathing. No respiratory distress. Cardiac: RRR, -mrg. Radial pulses intact and symmetrical. Abdominal: Nontender, nondistended, soft. BS present. : Schwab intact, light yellow urine draining Extremities: Warm, dry. Strength and ankle plantarflexion symmetrical, patient does follow some two-step commands today Discharge Data Allergies Allergy/AdvReac Type Severity Reaction Status Date / Time No Known Allergies Allergy Unverified 02/25/22 10:58 Consultations 02/25/22 10:32 ED Decision to Admit Stat Ordered Studies 02/25/22 07:25 CT head/brain wo con Stat 02/25/22 07:50 CT abd pelvis wo con Stat 02/25/22 11:00 US carotid doppler BI Stat 02/25/22 11:36 MR brain wo con Routine Diabetes Follow up Diabetes Follow-up Needed for HgbA1c >9% Hospital Course (1) Sepsis: Hira is a 86-year-old female with history of indwelling Schwab for neuromuscular dysfunction with recurrent voiding trials failed due to skin breakdown, type 2 diabetes, chronic decline, and GERD who presented with acute encephalopathy and who was admitted for sepsis due to UTI. She slowly improved with antibiotic treatment during admission. Patient culture was positive for Jeanette albicans. Culture on admission with multiple counts, on admission Schwab was exchanged and treated with broad-spectrum antibiotics. 3 culture positive for Pseudomonas and high counts. Was admitted for pseudomonal UTI, and completing treatment of symptomatic candidal UTI. To do as outpatient: 1. Complete 1 week course of antipseudomonal treatment for UTI with Cipro 500 mg twice daily for 3 additional days. Patient did receive cefepime during admission and was narrowed to orals on discharge. 2. Complete 14-day course of fluconazole treatment for candidal UTI with symptoms, 14-day course complete 03/05. 3. Regular EKG while on multiple QT prolonging meds, no QT prolongation with QTC 432 during hospital admission 4. Follow-up with outpatient primary care physician, continued glycemic adjustments. Patient with adequate glycemic control during admission but A1c poorly controlled on admission Sepsis, improved - 2/[address] A/P: No evidence of acute abnormality including evidence of hydronephrosis - On admit WBC 13.6, downtrended. PCT wnl, lactate wnl - Blood CX- ngtd - Urine CX- multiple growth, reculture as below - Repeat urine culture positive for pseudomonal UTI, pansensitive - ABX- vancomycin and cefepime in ED, along with Diflucan on admission, vancomycin subsequently narrowed - Given symptomatic with re-cultures with treat jeanette for 14 day total course -We will continue pseudomonal coverage until 03/05, will repeat Schwab exchange for biofilm 03/03 given past history -Discussed with center care. Current cognitive status is near her baseline there. Reviewed Schwab. Report Schwab removal trial had previously been attempted, however patient had recurrently had consistent repeated incontinence with wound breakdown and skin infection. On evaluation was reported as having neuromuscular dysfunction and recommended for chronic indwelling Schwab Did review with family 03/01. Patient is substantially below her baseline of a year ago, although they recognize her baseline has declined in center care since this time.Do feel that she is dramatically improved from when first admitted. (2) UTI (urinary tract infection): - Treat as above. (3) Left-sided weakness: - Reported new left sided facial droop, left sided weakness that developed around 0615 pre-hospital arrival, not seen at [facility]. Patient with symmetrical strength at bedside assessment to hand squeeze, limited engagement. - Initial head CT negative, MRI without acute finding/signs of stroke - Carotid dopplers showed no sonographic evidence of hemodynamically significant stenosis in the right or left carotid arterial system. - Echo with no evidence of emboli, normal LV systolic function, severe mitral annular calcification, RVSP normal A1c 9.6%, poorly controlled DM LDL 138, cholesterol 229 (4) Metabolic acidosis: - vBG: pCO2 21, pH 7.36, bicarb 12, O2 89, AG 22. - Unknown cause currently, no known ingestion, lactate 0.7, no known CKD - Salicylates < 3.0, APAP 14 (did receive Tylenol in ED for fever), EtOH < 10.0 -Gap normalized (5) Encephalopathy: - Per [facility] records, patient is alert, oriented and interactive at baseline with some mild confusion. Improving but still off baseline - LFTs normal, no evidence of liver failure. No head injuries, SpO2 99% on room air. - Continue to monitor medical course and response to treatment as above. (6) Elevated troponin: - 24.4, repeat 23.0, without symptoms of ACS although patient has been altered since her arrival. - EKG without ST segment or T wave changes, likely demand ischemia in setting of sepsis. -During admission troponin down trended to 15. (7) Hypomagnesemia: - Repleted (8) DM2 (diabetes mellitus, type 2): - Takes Jardiance, glipizide, metformin. Will hold these during hospitalization. - Basal insulin with accuchecks ACHS, SSI. - Admission sugar 245. - a1c poorly controlled, 9.6% - Continue Cymbalta for neuropathy. BSG adequate control currently (9) Hypothyroid: -Continue levothyroxine 50 mcg daily. -TSH 0.109 on admission, free T4 0.92. (10) Overactive bladder: - Continue oxybutynin 10 mg daily. - Catheter in place. -As noted reviewed catheter with center care. Is in place for neuromuscular dysfunction, prior voiding trials had failed and patient had had skin breakdown with infections as a result. Recommended for chronic indwelling Schwab per discussion with cc staff (11) GERD (gastroesophageal reflux disease): - Continue Protonix 40 mg daily. -Admit to med/surg tele. -SCDs, Lovenox for DVT ppx. -DNR/DNI. Total Time Total Time Spent Total Time Spent (In Minutes): Time spend day of discharge 60 minutes including direct patient care, documentation, review of labs and images, and coordination of care. Discharge Plan Discharge Items Patient Disposition: Transfer Inpatient Rehab Fac Reason For Visit: SEPSIS DUE TO UTI Discharge Diagnosis: Sepsis due to UTI Condition on Discharge: Fair Activity: Per Instructions section Non-emergency contact: Primary Care Provider Call non-emergency contact if: you have any medication questions, your symptoms worsen, your pain is not controlled, your pain is worsening, your pain is unusual for you and you have a fever Follow-up/Referrals: [facility] [Non-Staff] - Diet: Carb Consistent or DM2 Addtl Attending Provider Instructions: You are seen in the hospital for sepsis due to UTI. There was concern on admission of left-sided weakness/stroke, you are asymmetrical weakness improved and CT scan and MRI did not show any evidence of a stroke. You clinically improved on antibiotics. Your urine cultures showed evidence of a bacteria called Pseudomonas aeruginosa. You are treated with an IV antibiotic during admission and were discharged on ciprofloxacin as noted below. To help minimize colonization it is recommended that you have a Schwab exchange on 03/03, and continue your antibiotics through 03/05. You have been prescribed an antibiotic, ciprofloxacin. Please take ciprofloxacin 500 mg by mouth every 12 hours for 3 more days. This medication can prolong QT interval, your QT interval was normal during admission. Please continue fluconazole 100 mg by mouth twice daily until 03/05 to complete a 2-week course of treatment for symptomatic UTI with culture positive Jeanette albicans. If you develop any new or worsening symptoms including fever, chills, sweats, chest pain, chest pressure, difficulty breathing, uncontrolled nausea/vomiting, rash, wheezing, passing out or nearly passing out, bleeding, black/bloody bowel movements, or other new or concerning symptoms please call your primary care physician, or call 911 for re-evaluation in the emergency department if you are very concerned. Pending Studies at Discharge: No Stand-Alone Forms: My [facility] Skilled Items Patient informed of condition?: Yes DNR: Yes Discharge Level of Care: Acute rehab Communicable Disease: No Discharge Prognosis: Stable Lines: None Urinary Catheter: Yes (exchange on 03/03) Medications and DC Order Prescriptions: New ciprofloxacin HCl [Cipro] 500 mg tablet 500 mg PO BID 3 Days Qty: 6 RF: 0 Continued multivitamin Tablet 1 tab PO QAM RF: 0 acetaminophen 325 mg Tablet 325 mg PO QID PRN (Reason: Pain) RF: 0 oxybutynin chloride 10 mg tablet extended release 24 hr 10 mg PO DAILY RF: 0 magnesium hydroxide [Milk of Magnesia] 400 mg/5 mL Suspension 30 ml PO DAILY PRN (Reason: Constipation) RF: 0 insulin aspart U-100 [Novolog U-100 Insulin aspart] 100 unit/mL solution 0 sliding scale dose subcut QID RF: 0 ferrous gluconate 325 mg (37 mg iron) Tablet 324 mg PO DAILY RF: 0 levothyroxine 50 mcg tablet 50 mcg PO DAILY RF: 0 bisacodyl [Dulcolax (bisacodyl)] 10 mg Suppository 0 mg AK DAILY PRN (Reason: Constipation) RF: 0 pantoprazole 40 mg tablet,delayed release (DR/EC) 40 mg PO DAILY RF: 0 metformin 1,000 mg tablet 1,000 mg PO BID RF: 0 nystatin-triamcinolone 100,000-0.1 unit/g-% cream 1 applic TOPICAL TID RF: 0 Fleet Enema 19-7 gram/118 mL Enema 0 ml AK DAILY PRN (Reason: Constipation) RF: 0 nystatin [Nyamyc] 100,000 unit/gram powder 1 applic TOPICAL TID RF: 0 docusate sodium 100 mg Tablet 100 mg PO BID PRN (Reason: Constipation) RF: 0 glipizide 5 mg tablet 5 mg PO BID RF: 0 naproxen 500 mg tablet 500 mg PO Q12 PRN (Reason: Pain) RF: 0 duloxetine 60 mg capsule,delayed release(DR/EC) 60 mg PO QAM RF: 0 lactulose [Enulose] 10 gram/15 mL Solution 30 g PO DAILY PRN (Reason: Constipation) RF: 0 diclofenac sodium 1 % gel 4 g TOPICAL BID PRN (Reason: Pain) RF: 0 Eucerin Cream 1 applic TOPICAL BID RF: 0 menthol-zinc oxide 0.44-20.6 % Ointment 1 applic TOPICAL QID RF: 0 Myrbetriq 25 mg tablet extended release 24 hr 25 mg PO DAILY RF: 0 Jardiance 25 mg tablet 50 mg PO DAILY RF: 0 aspirin 81 mg Capsule 81 mg PO QAM RF: 0 Changed fluconazole 100 mg tablet 100 mg PO BID Qty: 0 RF: 0 Discontinued amoxicillin 250 mg capsule 250 mg PO TID RF: 0 Admission Data Admit Date/Time: 02/25/22 10:04 Attending Provider: Sea Koroma Admit Provider: Sea Koroma Primary Care Provider: Carmen West Other Providers: Brett,[facility] ; Sea Koroma ; [facility] Coding Level of Care Code D/C DAY MANAGEMENT >30 MINS Diagnoses Sepsis A41.9 UTI (urinary tract infection) N39.0 Left-sided weakness R53.1 Metabolic acidosis E87.2 Encephalopathy G93.40 Elevated troponin R77.8 Hypomagnesemia E83.42 DM2 (diabetes mellitus, type 2) E11.9 Hypothyroid E03.9 Overactive bladder N32.81 GERD (gastroesophageal reflux disease) K21.9
--- NOTE | 2022-03-09 15:20 | Coding Query ---
CODING QUERY To promote full compliance with coding requirements relating to patient care, provider participation is requested in all cases of skate shop attendant uncertainty. Please assist us with the question(s) below: Coding Question(s): Patient admitted with Sepsis due to recurrent UTI . Progress notes document Encephalopathy. Please document, if known or suspected, the etiology /type of Encephalopathy. Thank you. Dustin Del Castillo [facility] [place] Physician's Response(s): Metabolic encephalopathy 2/2 sepsis due to UTI Principal Diagnosis: "that condition established after study, to be chiefly responsible for occasioning the admission of the patient to the hospital for care." Co-Existing Principal Diagnosis: "when two or more diagnoses equally meet the criteria for principal diagnosis as determined by the circumstances of admission, diagnostic work up, and/or therapy provided, and the Alphabetic Index, Tabular List, or another coding guideline does not provide sequencing direction, any one of the diagnoses may be sequenced first." "When the physician has documented what appears to be a current diagnosis in the body of the record, but has not included the diagnosis in the final diagnostic statement, the physician should be asked whether the diagnosis should be added." (Source Coding Clinic 2 QTR90. p3-4) QUE
== END 2022-03-02 18:01 | DRG 871 ==
LOC: ED 07:11 → 2N 10:04